=== PATIENT | female | born 1970 | race Caucasian/White ===

== ENCOUNTER 2024-01-24 10:33 | Observation (INO) | payer OTHER, SELFPAY ==
[2024-01-24] VITALS (8 sets, daily range): BP systolic 125–181; BP diastolic 62–109; PULSE 56–78; RESP 16–19; TEMP 36.4–36.6; O2SAT 98–99; BMI 28.9
--- NOTE | ~2024-01-24 | US_ITS ---
EXAMINATION: US PELVIS COMPLETE TRANSVAGINAL PELVIC ULTRASOUND: CLINICAL INFORMATION: Lower abdominal pain COMPARISON: None TECHNIQUE: Transabdominal imaging initially performed. For more definitive evaluation of the endometrium and ovaries, transvaginal technique was employed. FINDINGS: Uterus is anteverted measuring 6.9 x 3.6 x 3.8cm. Endometrium measures 0.6 cm and is heterogeneous in appearance containing cystic spaces. Cervical calcifications and simple appearing nabothian cysts were seen. 1.1 x 0.7 x 0.6 cm avascular cystic structure in the cervix with varying sized internal echogenicities and echoes. Right ovary measures 2.0 x 0.8 x 1.1 cm for a volume of 0.9 mL. The left ovary measures 1.1 x 0.5 x 0.6 0.2 cm for a volume of 0.2 mL. There is no pelvic free fluid. US/US pelvic and transvaginal IMPRESSION: Thickened heterogeneous endometrium in postmenopausal patient. Question 1.1 cm complicated nabothian cyst versus cystic cervical lesion.
--- NOTE | ~2024-01-24 | CT_ITS ---
EXAMINATION: CT ABDOMEN AND PELVIS WITHOUT CONTRAST CLINICAL INFORMATION: Left lower quadrant pain. COMPARISON: Pelvic ultrasound dated 01/24/2024. TECHNIQUE: Multidetector volumetric imaging was performed from the superior aspect of the liver through the pubic symphysis. Sagittal and coronal reformatted images were obtained on the technologist's workstation. This CT examination was performed using dose optimization techniques as appropriate, variously including the following: *Automated exposure control *Adjustment of mA and/or kV according to patient size (this includes techniques or standardized protocols for targeted exams where dose is matched to indication/reason for exam; i.e. extremities or head) *Use of iterative reconstruction technique DLP: 755 mGy-cm FINDINGS: LUNG BASES: The visualized lung bases are unremarkable. LIVER, GALLBLADDER, AND BILIARY TREE: The liver is normal in size, shape, and attenuation. No focal hepatic lesion or biliary ductal dilatation is present. The gallbladder is unremarkable with no evidence of radiopaque gallstones, gallbladder wall thickening, or obvious pericholecystic inflammatory changes. PANCREAS: Unremarkable. SPLEEN: Unremarkable. ADRENAL GLANDS: Unremarkable. KIDNEYS AND URETERS: The kidneys are normal in size, shape, and attenuation. No hydronephrosis, hydroureter, or calculi seen. No perinephric stranding. BLADDER: Unremarkable. GASTROINTESTINAL TRACT: The small bowel and colon are normal in caliber. There is no pericolonic inflammatory stranding. There is what appears to be a suture line within the distal sigmoid colon. Correlate with surgical history. There is mild sigmoid colon diverticulosis. There is no evidence of acute diverticulitis. The appendix is not visualized. There is no free fluid within the abdomen or pelvis. ABDOMINAL WALL: There is a small fat-containing umbilical hernia. LYMPH NODES: There is no abdominal or pelvic lymphadenopathy. VASCULAR: There is no abdominal aortic aneurysm. There is mild calcific atherosclerotic disease. PELVIC VISCERA: The uterus is grossly normal in appearance. There is no adnexal mass lesion. OSSEOUS STRUCTURES: There is a left hip prostheses. No acute osseous abnormality is seen. CT/CT abdomen pelvis wo IV con IMPRESSION: No acute intra-abdominal/intrapelvic abnormality. There is a suture line within the distal sigmoid colon. Correlate with surgical history. There is mild sigmoid colon diverticulosis. There is no evidence of acute diverticulitis. The appendix is not visualized. Correlate with surgical history. Fleischner guidelines were followed.
[2024-01-24 11:11] LABS: MANUAL DIFF FLAG NO
[2024-01-24 11:13] LABS: Basophils Absolute Auto 0.1 X10*3/uL (0.0-0.2); Eosinophils Absolute Auto 0.2 X10*3/uL (0.0-0.4); Eosinophils Percent Auto 2.5 % (0-4); Hemoglobin 16.2 g/dl (12.0-16.0); Imm Gran Abs Auto 0.02 X10*3/uL (0.00-0.03); Imm Gran Pct Auto 0.3 % (0.0-0.4); Lymphocytes Percent Auto 38.9 % (20-40); Mean Corpuscular HGB Conc 33.1 g/dl (31.0-35.0); Mean Corpuscular Hemoglobin 28.3 pg (27.0-33.0); Mean Corpuscular Volume 85.5 fL (80.0-98.0); Mean Platelet Volume 9.7 fL (9.4-12.3); Monocytes Absolute Auto 0.4 X10*3/uL (0.1-1.2); Monocytes Percent Auto 5.4 % (2-11); Neutrophils Percent Auto 51.9 % (45-73); Platelet Count 259 X10*3/uL (160-400); Red Blood Count 5.73 X10*6/uL (4.20-5.50); Red Cell Distribution Width 13.1 % (11.0-16.0); White Blood Count 7.7 X10*3/uL (4.8-10.8)
--- NOTE | 2024-01-24 11:34 | PC.NURSE ---
pt reports vaginal bleeding just started moments ago, seen by NOE Carvajal,
--- NOTE | 2024-01-24 11:35 | ED.ABDPAIN ---
HPI - Abdominal Pain General Chief Complaint: Abdominal Pain Stated Complaint: Stomach Pain Diverticulitis Time Seen by Provider: 01/24/24 14:23 Source: patient Mode of arrival: ambulatory Limitations: no limitations History of Present Illness HPI narrative: patient is a 53-year-old female who presents to the emergency department for evaluation of left lower quadrant abdominal pain. She states while in the emergency department waiting room she used the bathroom, and upon wiping she did notice to have brown/dark red discharge on the toilet tissue which she thought was from the vaginal area, but she can not say with 100% certainty that it was vaginal rather than rectal. She does report a history of complicated diverticulitis with perforation, history of colectomy and colostomy with revision approximately 10 years ago. She reports onset was yesterday and described as severe in nature with a suprapubic cramping sensation. She states that approximately 2 weeks ago she noticed a small amount of brown/dark red ? vaginal bleeding. She reports last menstrual period to be approximately 9 years ago, she went to her OBGYN office who had ordered an ultrasound. She reports she could not understand what the trader fixed income had advised her of in regards to the ultrasound, her primary care doctor told her there was something to do with the endometrium and advised her to follow-up with her trader fixed income but she has not contacted the office back at this time. 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 Reports her last Pap smear to be approximately 4-5 years ago. Related Data Home Medications ?Medication ?Instructions ?Recorded ?Confirmed acetaminophen 300 mg-codeine 30 mg 2 tab PO BID Pain 01/24/24 01/24/24 tablet levothyroxine 100 mcg tablet 100 mcg PO DAILY 01/24/24 01/24/24 losartan 25 mg tablet 25 mg PO BEDTIME 01/24/24 01/24/24 omeprazole 20 mg tablet,delayed 20 mg PO BEDTIME 01/24/24 01/24/24 release paroxetine HCl 40 mg tablet 40 mg PO BEDTIME 01/24/24 01/24/24 rizatriptan 10 mg tablet 10 mg PO DAILY PRN Migraine 01/24/24 01/24/24 Headache simvastatin 20 mg tablet 20 mg PO BEDTIME 01/24/24 01/24/24 topiramate 50 mg tablet 50 mg PO BEDTIME 01/24/24 01/24/24 zolpidem 10 mg tablet 5 - 10 mg PO BEDTIME PRN Insomnia 01/24/24 01/24/24 Allergies Allergy/AdvReac Type Severity Reaction Status Date / Time Iodinated Contrast Media Allergy Hives Verified 01/24/24 10:37 [IV Contrast Dye] Penicillins [PCN] Allergy Hives Verified 01/24/24 10:37 pregabalin [From Lyrica] Allergy Unknown Verified 01/24/24 10:37 Review of Systems Review of Systems Yes all other systems are reviewed and are negative [facility] Past Medical History Attestation statement: The following information was validated with the patient. Source: old records reviewed Social History Social History Smoked in Last 30 Days: Yes Use of substances other than those prescribed or required for medical reasons: No Advance Directives: No Advance Directives Information Provided: No Physical Exam ED Vital Signs: Vital Signs - 24 hr 01/24/24 10:36 01/24/24 11:35 01/24/24 16:26 Temperature 97.6 F Pulse Rate 71 78 Respiratory Rate 19 16 16 Blood Pressure 181/96 H 165/109 H Pulse Oximetry 99 98 Oxygen Delivery Method Room Air 01/24/24 16:30 Temperature Pulse Rate 60 Respiratory Rate 18 Blood Pressure 150/85 H Pulse Oximetry 98 Oxygen Delivery Method Room Air BMI result Body Mass Index 28.9 Appearance: Alert.?Oriented to person, place and time. No acute distress.?Normal affect. Eyes: Pupils equal, round and reactive to light.? ENT: Pharynx normal.?? Neck: Normal inspection.? Neck supple.?? CVS: Heart sounds normal. Normal heart rate and rhythm.? Pulses normal.?? Respiratory: No respiratory distress.? Lung sounds clear to auscultation bilaterally?? Abdomen: Soft left lower quadrant tenderness upon palpation. Normoactive bowel sounds. no CVA tenderness rectal: performed with postdoctoral research associate, ED EDITH Solares, no fissures, no hemorrhoids, no erythema or warmth of the perianal region. No palpable masses on digital rectal examination. Skin: Skin warm and dry.? Normal skin color.? ? Extremities: No lower extremity edema.? Neuro: Moves all extremities spontaneously. Sensation intact bilaterally. Ambulates with normal steady gait. Course Course Course Narrative: This is an RME: Additional HPI, ROS, PE not included below will be deferred to primary provider. 53 year old female presents w/ lower abd pain since yesterday and now here in the emergency started having vaginal bleeding. Has not had a period in like 10 years. Reports she just doseny feel right. Recent US was normal she says Plan- labs, imaging Reevaluation(s) Reevaluation #1: Ultrasound reveals thickened heterogeneous endometrium and question of a 1.1 cm complicated nabothian cyst versus cystic cervical lesion, avascular. These results were discussed with patient. Concern for possible rupture of nabothian cysts which may have resulted in vaginal discharge/ bleeding as described. Had an at length conversation, with any concern for postmenopausal bleeding, she should have malignancy ruled out by her trader fixed income provider. Advised strongly to contact their office today or first thing tomorrow morning to arrange for further follow-up. She continues to have significant left lower quadrant abdominal pain, CT does not reveal any acute intra-abdominal pathology, there is mild diverticulosis but no acute evidence of diverticulitis. Patient was evaluated by hospitalist, Dr. Pulido who pans for inpatient admission for further management. Time: 16:37 Medical Decision Making Medical Decision Making MDM Narrative: Patient is a 53-year-old female past medical history of complicated diverticulitis, HPV presenting to emergency department for evaluation of left lower quadrant abdominal pain and concern for vaginal versus rectal bleeding. Will obtain CBC to evaluate for leukocytosis/ anemia, CMP and lipase to evaluate for abnormal electrolytes /abnormal renal function/ abnormal hepatic/biliary function, pelvic ultrasound as ordered prior to my assumption of care, CT of the abdomen and pelvis and Urinalysis. Differential Diagnosis Differential Diagnoses: The differential diagnosis associated with the presentation includes ( diverticulitis, colitis, gastroenteritis, uterine/cervical cancer, endometrial hyperplasia) Admission/Observation Consideration of admission/observation: Escalation of care including admission/observation considered ( see course narrative) Lab Data [facility] Lab Attestation statement: I reviewed the patient's lab results. CBC is without leukocytosis anemia or thrombocytopenia. CMP overall unremarkable. Lipase within normal range. urinalysis negative. Occult stool negative. 01/24/24 11:07 01/24/24 11:07 Labs: Lab Results 01/24/24 01/24/24 01/24/24 Range/Units 11:07 15:16 16:19 WBC 7.7 (4.8-10.8) X10*3/uL RBC 5.73 H (4.20-5.50) X10*6/uL Hgb 16.2 H (12.0-16.0) g/dl Hct 49.0 H (37.0-47.0) % MCV 85.5 (80.0-98.0) fL MCH 28.3 (27.0-33.0) pg MCHC 33.1 (31.0-35.0) g/dl RDW 13.1 (11.0-16.0) % Plt Count 259 (160-400) X10*3/uL MPV 9.7 (9.4-12.3) fL Immature Gran % (Auto) 0.3 (0.0-0.4) % Neut % (Auto) 51.9 (45-73) % Lymph % (Auto) 38.9 (20-40) % [place] % (Auto) 5.4 (2-11) % Eos % (Auto) 2.5 (0-4) % Baso % (Auto) 1.0 (0-2) % Lymph # (Auto) 3.0 (1.2-4.9) X10*3/uL [place] # (Auto) 0.4 (0.1-1.2) X10*3/uL Eos # (Auto) 0.2 (0.0-0.4) X10*3/uL Baso # (Auto) 0.1 (0.0-0.2) X10*3/uL Abs Immat Gran (auto) 0.02 (0.00-0.03) X10*3/uL Absolute Neuts (auto) 4.0 (2.0-8.3) x10*3/uL Absolute Nucleated RBC 0.000 (0.0-0.012) X10*3/uL Nucleated RBC % (auto) 0.0 (0.0-0.2) /100WBC Sodium 141 (135-145) mmol/L Potassium 3.9 (3.3-5.1) mmol/L Chloride 110 H (96-108) mmol/L Carbon Dioxide 20 L (22-29) mmol/L Anion Gap 15 (12-20) BUN 8 L (9-16) mg/dL Creatinine 0.82 (0.5-1.4) mg/dL Estim Creat Clear Calc 89.1 Estimated GFR > 60 Random Glucose 90 (60-115) mg/dL Calcium 10.2 (8.4-10.2) mg/dL Total Bilirubin 0.4 (0.0-1.0) mg/dL Direct Bilirubin 0.1 (0.0-0.5) mg/dL AST 22 (5-31) U/L ALT 41 H (0-31) U/L Alkaline Phosphatase 107 (39-117) U/L Total Protein 8.0 (6.5-8.0) g/dL Albumin 4.9 (3.5-5.0) g/dL Lipase 38 (8-78) U/L Urine Color Yellow Urine Appearance Clear Urine pH 7.0 (5.0-9.0) Ur Specific [place] 1.015 (1.005-1.025) Urine Protein Negative (Neg-Trace) mg/dL Urine Glucose (UA) Negative (Negative) mg/dL Urine Ketones Negative (Negative) mg/dL Urine Blood Negative (Negative) Urine Nitrite Negative (Negative) Ur Leukocyte Esterase Negative (Negative) Stool Occult Blood NEGATIVE (NEGATIVE) Radiology Impression Discussion of test interpretation with radiology: I have reviewed the radiologist's reading. Radiologist Impression: US/US pelvic and transvaginal IMPRESSION: Thickened heterogeneous endometrium in postmenopausal patient. Question 1.1 cm complicated nabothian cyst versus cystic cervical lesion. CT/CT abdomen pelvis wo IV con IMPRESSION: No acute intra-abdominal/intrapelvic abnormality. There is a suture line within the distal sigmoid colon. Correlate with surgical history. There is mild sigmoid colon diverticulosis. There is no evidence of acute diverticulitis. The appendix is not visualized. Correlate with surgical history. Fleischner guidelines were followed. Medications Administered Generic Name Dose Route Start Last Admin Trade Name Freq PRN Reason Stop Dose Admin Enoxaparin Sodium 40 mg 01/24/24 18:00 01/24/24 17:58 Enoxaparin Sodium 40 Mg/0.4 Ml Syringe SUBCUT 40 mg Q24H ROSI Administration Lactated Ringer's 1,000 mls @ 100 mls/hr 01/24/24 16:45 01/24/24 18:06 Lr IVCONT 100 mls/hr .Q10H ROSI Administration Metronidazole 500 mg in 100 mls @ 100 mls/hr 01/24/24 17:00 01/24/24 17:52 Flagyl IV 100 mls/hr Q8H ROSI Administration Discontinued Medications Generic Name Dose Route Start Last Admin Trade Name Freq PRN Reason Stop Dose Admin Morphine Sulfate 4 mg 01/24/24 15:17 01/24/24 16:26 Morphine Sulfate 4 Mg/Ml Cartridge IVPUSH 01/24/24 15:18 4 mg ONCE ONE Administration Protocol Ondansetron HCl 4 mg 01/24/24 15:17 01/24/24 16:26 Ondansetron Hcl 4 Mg/2 Ml Vial IVPUSH 01/24/24 15:18 4 mg ONCE ONE Administration Critical Care Time Critical Care Time Critical Care Time: Yes Total Critical Care Time: 40 Attestation: I personally attest to this critical care time spent taking care of the patient exclusive of all other billable procedures was approximately 40 minutes including initial evaluation of patient, ordering tests,CT interpretation, Pain management, medical consultation, documentation, re-evaluation. Discharge Plan Discharge Clinical Impression: Left lower quadrant abdominal pain, Hypertension Patient Disposition: Admitted As Inpatient
[2024-01-24 11:37] LABS: Alanine Aminotransferase 41 U/L (0-31); Albumin Level 4.9 g/dL (3.5-5.0); Alkaline Phosphatase 107 U/L (39-117); Anion Gap 15 (12-20); Aspartate Amino Transferase 22 U/L (5-31); Bilirubin Direct 0.1 mg/dL (0.0-0.5); Bilirubin Total 0.4 mg/dL (0.0-1.0); Blood Urea Nitrogen 8 mg/dL (9-16); Calcium 10.2 mg/dL (8.4-10.2); Carbon Dioxide 20 mmol/L (22-29); Chloride 110 mmol/L (96-108); Creatinine Clr Calc Pharmacy 89.1; Estimated Glomerular Filt Rate > 60; Glucose Random 90 mg/dL (60-115); Lipase 38 U/L (8-78); Potassium 3.9 mmol/L (3.3-5.1); Sodium 141 mmol/L (135-145)
[2024-01-24 15:24] LABS: OBS Int Ctl Valid YES; OBS1 NEGATIVE (NEGATIVE)
[2024-01-24] MEDS: ondansetron HCL 4 MG/2 ML VIAL IVPUSH (16:26)
[2024-01-24] MEDS: Morphine Sulfate 4 MG/ML CARTRIDGE IVPUSH ×3 (16:26→22:52)
[2024-01-24 16:31] LABS: Appearance Urine Clear; Color Urine Yellow; Glucose Urine UA Negative (Negative); Leukocyte Esterase Urine Negative (Negative); Nitrite Urine Negative (Negative); Specific Gravity - Urine 1.015 (1.005-1.025); Urine Blood Negative (Negative); Urine Ketones Negative (Negative); Urine Protein Negative (Neg-Trace)
--- NOTE | 2024-01-24 16:41 | PM.IMHP ---
History of Present Illness Date of Service: 01/24/24 Chief Complaint: Abd pain 53-year-old female who presents to the emergency department for evaluation of left lower quadrant abdominal pain. She states while in the emergency department waiting room she used the bathroom, and upon wiping she did notice to have brown/dark red discharge on the toilet tissue which she thought was from the vaginal area, but she can not say with 100% certainty that it was vaginal rather than rectal. She does report a history of complicated diverticulitis with perforation, history of colectomy and colostomy with revision approximately 10 years ago. She reports onset was yesterday and described as severe in nature with a suprapubic cramping sensation. She states that approximately 2 weeks ago she noticed a small amount of brown/dark red ? vaginal bleeding. She reports last menstrual period to be approximately 9 years ago, she went to her OBGYN office who had ordered an ultrasound. She reports she could not understand what the retail maintenance technician had advised her of in regards to the ultrasound, her primary care doctor told her there was something to do with the endometrium and advised her to follow-up with her retail maintenance technician but she has not contacted the office back at this time. 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 Reports her last Pap smear to be approximately 4-5 years ago. Review of Systems Review of Systems: Denies chest pain Denies shortness of breath Admits to nausea no vomiting no diarrhea Denies fever chills PMFSH Social History Smoked in Last 30 Days: Yes Use of substances other than those prescribed or required for medical reasons: No Advance Directives: No Advance Directives Information Provided: No Meds Allergies Allergy/AdvReac Type Severity Reaction Status Date / Time Iodinated Contrast Media Allergy Hives Verified 01/24/24 10:37 [IV Contrast Dye] Penicillins [PCN] Allergy Hives Verified 01/24/24 10:37 pregabalin [From Lyrica] Allergy Unknown Verified 01/24/24 10:37 Active Medications: Current Medications Enoxaparin Sodium (Enoxaparin Sodium 40 Mg/0.4 Ml Syringe) 40 mg SUBCUT Q24H ROSI Lactated Ringer's (Lr) 1,000 mls @ 100 mls/hr IVCONT .Q10H ROSI Levofloxacin (Levaquin) 500 mg in 100 mls @ 100 mls/hr IV Q24H ROSI Metronidazole (Flagyl) 500 mg in 100 mls @ 100 mls/hr IV Q8H ROSI Morphine Sulfate (Morphine Sulfate 4 Mg/Ml Cartridge) 4 mg IVPUSH Q4H PRN; Protocol PRN Reason: Pain, Severe (Pain Scale 7-10) Sodium Chloride (0.9 % Sodium Chloride Flush 3 Ml Syringe) 3 ml IVFLUSH QSHIFT ROSI Physical Exam Vital Signs and Narrative: Vital Signs: Last Vital Signs Temp 97.6 F 01/24/24 10:36 Pulse 60 01/24/24 16:30 Resp 18 01/24/24 16:30 BP 150/85 H 01/24/24 16:30 Pulse Ox 98 01/24/24 16:30 O2 Del Method Room Air 01/24/24 16:30 BMI result Body Mass Index 28.9 Const: Other: Uncomfortable appearing lying quietly in the stretcher Resp: Other: Clear to auscultation bilaterally no rales rhonchi or wheezes Cardio: Other: No S4; positive S1-S2; no S3 murmurs rubs or gallops GI: Other: Soft tender left lower quadrant with voluntary guarding. Bowel sounds quiet Neuro: Other: Cranial nerves 2-12 grossly intact as tested. Motor is 5/5 all extremities. Sensation is intact. Cognition appropriate. Gait not tested Extrem: Other: No edema bilaterally Results Labs 01/24/24 11:07 01/24/24 11:07 Labs: Laboratory Results - last 24 hr 01/24/24 01/24/24 11:07 15:16 MCV 85.5 MCH 28.3 MCHC 33.1 RDW 13.1 Plt Count 259 MPV 9.7 Immature Gran % (Auto) 0.3 Neut % (Auto) 51.9 Lymph % (Auto) 38.9 [place] % (Auto) 5.4 Eos % (Auto) 2.5 Baso % (Auto) 1.0 Lymph # (Auto) 3.0 [place] # (Auto) 0.4 Eos # (Auto) 0.2 Baso # (Auto) 0.1 Abs Immat Gran (auto) 0.02 Absolute Neuts (auto) 4.0 Absolute Nucleated RBC 0.000 Nucleated RBC % (auto) 0.0 Anion Gap 15 Estim Creat Clear Calc 89.1 Estimated GFR > 60 Random Glucose 90 Calcium 10.2 Total Bilirubin 0.4 Direct Bilirubin 0.1 AST 22 ALT 41 H Alkaline Phosphatase 107 Total Protein 8.0 Albumin 4.9 Lipase 38 Stool Occult Blood NEGATIVE Imaging Radiologist's Impressions: Impressions Pelvic/Transvag US 01/24/24 12:44 IMPRESSION: Thickened heterogeneous endometrium in postmenopausal patient. Question 1.1 cm complicated nabothian cyst versus cystic cervical lesion. Abdomen/Pelvis CT 01/24/24 15:43 IMPRESSION: No acute intra-abdominal/intrapelvic abnormality. There is a suture line within the distal sigmoid colon. Correlate with surgical history. There is mild sigmoid colon diverticulosis. There is no evidence of acute diverticulitis. The appendix is not visualized. Correlate with surgical history. Fleischner guidelines were followed. Assessment and Plan (1) Left lower quadrant abdominal pain: Status: Acute (2) Hypertension: Qualifiers: Hypertension type: primary hypertension Qualified Code(s): I10 - Essential (primary) hypertension Status: Acute (3) Hypothyroidism: Qualifiers: Hypothyroidism type: unspecified Qualified Code(s): E03.9 - Hypothyroidism, unspecified Status: Acute Plan 53-year-old female with onset of 10/10 left lower quadrant pain worsening over the last 24 hours. Has history of complicated diverticulitis with perforation history of colectomy with colostomy which was revised approximately 10 years ago. Complaining of persistent nausea despite Zofran 1. Left lower quadrant pain Given patient's exam and history with nausea will admit observation for Zofran and pain control despite negative CT scan. -Levaquin/Flagyl (1) -morphine for severe pain; oxycodone from mild pain -volume repletion -re-evaluate in a.m. 2. Hypertension -acceptable control -continue losartan 3. Hypothyroidism -continue outpatient supplementation Full code Lovenox Patient requires 1 night of hospitalization for IV Zofran and pain medicine with empiric antibiotics for suspected CT scan negative diverticulitis. Given examined history she is a high risk for outpatient therapies. This level of care can not be replicated a [facility] Quality Stroke Does the patient have a stroke diagnosis?: No VTE Prior VTE?: No VTE Risk Level:: Medical - moderate - high VTE Device Contraindication: Treatment Not Indicated VTE Drug Contraindication: N/A - Med Ordered
--- NOTE | 2024-01-24 16:59 | PHA.MEDREC ---
Pharmacy Consult ? Medication Reconciliation Pharmacy has completed the medication reconciliation. Patient confirmed all medication. Patient takes Tylenol w/ codeine scheduled BID for her hip surgery. Patient takes all medication at night, except levothyroxine. Maria C RogersD
[2024-01-24] MEDS: metroNIDAZOLE/NS 500 MG/100 ML PIGGYBACK 100 MG IV (17:52)
[2024-01-24] MEDS: Enoxaparin Sodium 40 MG/0.4 ML SYRINGE SUBCUT (17:58)
[2024-01-24] MEDS: Lactated Ringers 1,000 ML 100 ML IVCONT (18:06)
[2024-01-24 18:23] LABS: MANUAL DIFF FLAG NO
[2024-01-24] MEDS: levoFLOXacin/D5W 500 MG/100 ML PIGGYBACK 100 MG IV (18:53)
[2024-01-24 18:59] LABS: Basophils Absolute Auto 0.1 X10*3/uL (0.0-0.2); Basophils Percent Auto 1.1 % (0-2); Eosinophils Absolute Auto 0.2 X10*3/uL (0.0-0.4); Eosinophils Percent Auto 2.4 % (0-4); Hematocrit 43.7 % (37.0-47.0); Hemoglobin 14.4 g/dl (12.0-16.0); Imm Gran Abs Auto 0.01 X10*3/uL (0.00-0.03); Imm Gran Pct Auto 0.1 % (0.0-0.4); Lymphocytes Absolute Auto 2.8 X10*3/uL (1.2-4.9); Lymphocytes Percent Auto 37.1 % (20-40); Mean Corpuscular Hemoglobin 28.3 pg (27.0-33.0); Mean Platelet Volume 9.8 fL (9.4-12.3); Monocytes Absolute Auto 0.5 X10*3/uL (0.1-1.2); Monocytes Percent Auto 6.8 % (2-11); Neutrophils Absolute Auto 3.9 x10*3/uL (2.0-8.3); Neutrophils Percent Auto 52.5 % (45-73); Platelet Count 257 X10*3/uL (160-400); Red Blood Count 5.08 X10*6/uL (4.20-5.50); Red Cell Distribution Width 13.1 % (11.0-16.0); White Blood Count 7.5 X10*3/uL (4.8-10.8)
[2024-01-24] MEDS: Losartan Potassium 25 MG TABLET PO (21:15)
[2024-01-25] MEDS: metroNIDAZOLE/NS 500 MG/100 ML PIGGYBACK 100 MG IV ×3 (01:55→16:08)
[2024-01-25 03:06] VITALS: BP 165/81; PULSE 53; RESP 16; TEMP 36.1; O2SAT 99
[2024-01-25 03:09] VITALS: BMI 29.3
[2024-01-25 03:17] LABS: Glucose, Whole Blood 116 mg/dL (60-115)
[2024-01-25] MEDS: Lactated Ringers 1,000 ML 100 ML IVCONT ×2 (03:26→13:21)
[2024-01-25] MEDS: Morphine Sulfate 4 MG/ML CARTRIDGE IVPUSH ×3 (03:26→18:23)
[2024-01-25 07:42] VITALS: BP 138/79; PULSE 55; RESP 16; TEMP 36.1; O2SAT 95
[2024-01-25] MEDS: Acetaminophen/Codeine 300-30mg Tablet 1 TAB PO (09:04)
--- NOTE | 2024-01-25 10:23 | MHC.CM.PN ---
PATIENT IS FULLY INDEPENDENT WITH ALL ADLS. 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 NICHOLSON EXPLAINED, SIGNED, AND COPY LEFT BEDSIDE. PATIENT CURRENTLY EXPERIENCING NAUSEA AND ABDOMINAL PAIN CM NAME WRITTEN ON BOARD IN THE EVENT SHE HAS ANY FURTHER QUESTIONS. CM CAN RETURN TO DISCUSS HCP NICHOLSON 01/24 IN CHART
[2024-01-25] MEDS: ondansetron HCL 4 MG/2 ML VIAL IVPUSH (10:36)
[2024-01-25 12:00] VITALS: BP 156/84; PULSE 52; RESP 16; TEMP 36.2; O2SAT 96
--- NOTE | 2024-01-25 13:38 | P.PNIM_ITS ---
Subjective Subjective Date of Service: 01/25/24 Interval History: Still unable to take p.o. without increasing abdominal pain. Review of Systems Denies chest pain Denies shortness of breath Admits to nausea no vomiting no diarrhea Denies fever chills Physical Exam 2 Vital Signs: Vital Signs: Last Vital Signs Temp 97.2 F 01/25/24 12:00 Pulse 52 01/25/24 12:00 Resp 16 01/25/24 12:00 BP 156/84 H 01/25/24 12:00 Pulse Ox 96 01/25/24 12:00 O2 Del Method Room Air 01/25/24 12:00 BMI result Body Mass Index 29.3 Const: Other: Uncomfortable appearing lying quietly in the stretcher Resp: Other: Clear to auscultation bilaterally no rales rhonchi or wheezes Cardio: Other: No S4; positive S1-S2; no S3 murmurs rubs or gallops GI: Other: Soft tender left lower quadrant with voluntary guarding. Bowel sounds quiet Neuro: Other: Cranial nerves 2-12 grossly intact as tested. Motor is 5/5 all extremities. Sensation is intact. Cognition appropriate. Gait not tested Extrem: Other: No edema bilaterally Objective Data Active Medications Atorvastatin Calcium (Atorvastatin Calcium 10 Mg Tablet) 10 mg PO BEDTIME [facility] Enoxaparin Sodium (Enoxaparin Sodium 40 Mg/0.4 Ml Syringe) 40 mg SUBCUT Q24H [facility] Last Admin: 01/24/24 17:58 Dose: 40 mg Documented By: MINE Lactated Ringer's (Lr) 1,000 mls @ 100 mls/hr IVCONT .Q10H [facility] Last Admin: 01/25/24 13:21 Dose: 100 mls/hr Documented By: ROSETTA Levofloxacin (Levaquin) 500 mg in 100 mls @ 100 mls/hr IV Q24H [facility] Last Infusion: 01/24/24 21:08 Dose: Infused Documented By: BRIDGER Metronidazole (Flagyl) 500 mg in 100 mls @ 100 mls/hr IV Q8H [facility] Last Infusion: 01/25/24 09:22 Dose: Infused Documented By: ROSETTA Levothyroxine Sodium (Levothyroxine Sodium 100 Mcg Tablet) 100 mcg PO DAILY@0600 [facility] Last Admin: 01/25/24 10:47 Dose: Not Given Documented By: ROSETTA Non-Admin Reason: Nausea Losartan Potassium (Losartan Potassium 25 Mg Tablet) 25 mg PO BEDTIME [facility]I; Protocol Last Admin: 01/24/24 21:15 Dose: 25 mg Documented By: BRIDGER Morphine Sulfate (Morphine Sulfate 4 Mg/Ml Cartridge) 4 mg IVPUSH Q3H PRN; Protocol PRN Reason: Pain, Severe (Pain Scale 7-10) Last Admin: 01/25/24 10:43 Dose: 4 mg Documented By: ROSETTA Omeprazole (Omeprazole 20 Mg Capsule.Dr) 20 mg PO BEDTIME [facility] Ondansetron HCl (Ondansetron Hcl 4 Mg/2 Ml Vial) 4 mg IVPUSH Q6H PRN PRN Reason: Nausea and Vomiting Last Admin: 01/25/24 10:36 Dose: 4 mg Documented By: ROSETTA Oxycodone HCl (Oxycodone Hcl Immed Release 5 Mg Tablet) 5 mg PO Q4H PRN PRN Reason: Pain, Moderate(Pain Scale 4-6) Paroxetine HCl (Paroxetine Hcl 40 Mg Tablet) 40 mg PO BEDTIME [facility] Sodium Chloride (0.9 % Sodium Chloride Flush 3 Ml Syringe) 3 ml IVFLUSH QSHIFT [facility] Last Admin: 01/25/24 07:12 Dose: Not Given Documented By: ROSETTA Non-Admin Reason: IV Running Labs 01/24/24 18:14 01/24/24 11:07 Labs: Laboratory Results - last 24 hr 01/24/24 01/24/24 01/24/24 15:16 16:19 18:14 MCV 86.0 MCH 28.3 MCHC 33.0 RDW 13.1 Plt Count 257 MPV 9.8 Immature Gran % (Auto) 0.1 Neut % (Auto) 52.5 Lymph % (Auto) 37.1 [place] % (Auto) 6.8 Eos % (Auto) 2.4 Baso % (Auto) 1.1 Lymph # (Auto) 2.8 [place] # (Auto) 0.5 Eos # (Auto) 0.2 Baso # (Auto) 0.1 Abs Immat Gran (auto) 0.01 Absolute Neuts (auto) 3.9 Absolute Nucleated RBC 0.000 Nucleated RBC % (auto) 0.0 POC Glucose Urine Color Yellow Urine Appearance Clear Urine pH 7.0 Ur Specific [place] 1.015 Urine Protein Negative Urine Glucose (UA) Negative Urine Ketones Negative Urine Blood Negative Urine Nitrite Negative Ur Leukocyte Esterase Negative Stool Occult Blood NEGATIVE 01/25/24 03:12 MCV MCH MCHC RDW Plt Count MPV Immature Gran % (Auto) Neut % (Auto) Lymph % (Auto) [place] % (Auto) Eos % (Auto) Baso % (Auto) Lymph # (Auto) [place] # (Auto) Eos # (Auto) Baso # (Auto) Abs Immat Gran (auto) Absolute Neuts (auto) Absolute Nucleated RBC Nucleated RBC % (auto) POC Glucose 116 H Urine Color Urine Appearance Urine pH Ur Specific [place] Urine Protein Urine Glucose (UA) Urine Ketones Urine Blood Urine Nitrite Ur Leukocyte Esterase Stool Occult Blood Assessment and Plan (1) Left lower quadrant abdominal pain: Status: Acute (2) Hypertension: Status: Acute (3) Hypothyroidism: Status: Acute Plan 53-year-old female with onset of 10/10 left lower quadrant pain worsening over the last 24 hours. Has history of complicated diverticulitis with perforation history of colectomy with colostomy which was revised approximately 10 years ago. Complaining of persistent nausea despite Zofran 1. Left lower quadrant pain Given patient's exam and history with nausea will admit observation for Zofran and pain control despite negative CT scan. -Levaquin/Flagyl (2) -morphine for severe pain; oxycodone from mild pain -volume repletion -re-evaluate in a.m. 2. Hypertension -acceptable control -continue losartan 3. Hypothyroidism -continue outpatient supplementation Full code Lovenox Patient requires ongoing hospitalization secondary to increased abdominal pain and inability to take p.o. without discomfort Quality Stroke Does the patient have a stroke diagnosis?: No VTE Prior VTE?: No VTE Risk Level:: Medical - moderate - high VTE Device Contraindication: Treatment Not Indicated VTE Drug Contraindication: N/A - Med Ordered
[2024-01-25 14:48] VITALS: BP 129/68; PULSE 61; RESP 18; TEMP 36.6; O2SAT 94
[2024-01-25] MEDS: oxyCODONE HCl Immed Release 5 MG TABLET PO ×2 (16:13→23:21)
[2024-01-25] MEDS: Enoxaparin Sodium 40 MG/0.4 ML SYRINGE SUBCUT (17:09)
[2024-01-25] MEDS: levoFLOXacin/D5W 500 MG/100 ML PIGGYBACK 100 MG IV (17:23)
[2024-01-25 19:03] VITALS: BP 151/98; PULSE 59; RESP 18; TEMP 36.3; O2SAT 97
[2024-01-25 20:01] VITALS: BP 151/98
[2024-01-25] MEDS: Atorvastatin Calcium 10 MG TABLET PO (20:01)
[2024-01-25] MEDS: PARoxetine HCL 40 MG TABLET PO (20:01)
[2024-01-25] MEDS: Omeprazole 20 MG CAPSULE.DR PO (20:01)
[2024-01-25] MEDS: Losartan Potassium 25 MG TABLET PO (20:01)
[2024-01-25] MEDS: 0.9 % Sodium Chloride Flush 3 ML SYRINGE IVFLUSH (20:02)
[2024-01-26] MEDS: metroNIDAZOLE/NS 500 MG/100 ML PIGGYBACK 100 MG IV ×2 (00:02→08:19)
[2024-01-26 04:00] VITALS: BP 140/72; PULSE 55; RESP 16; TEMP 36; O2SAT 94
[2024-01-26] MEDS: Levothyroxine Sodium 100 MCG TABLET PO (06:16)
[2024-01-26] MEDS: oxyCODONE HCl Immed Release 5 MG TABLET PO (06:18)
[2024-01-26 07:00] VITALS: BP 159/78; PULSE 51; RESP 16; TEMP 36.3; O2SAT 96
[2024-01-26 08:20] VITALS: RESP 17
[2024-01-26] MEDS: Morphine Sulfate 4 MG/ML CARTRIDGE IVPUSH (08:20)
[2024-01-26] MEDS: ondansetron HCL 4 MG/2 ML VIAL IVPUSH (08:20)
[2024-01-26] MEDS: 0.9 % Sodium Chloride Flush 3 ML SYRINGE IVFLUSH (08:20)
[2024-01-26] MEDS: Magnesium Hydrox/Alum Hydrox 30 ML ORAL.SUSP PO (10:36)
[2024-01-26] MEDS: Pantoprazole Sodium 40 MG/10 ML VIAL IVPUSH (10:36)
[2024-01-26] MEDS: Lidocaine HCl Viscous 2 % 15 ML SOLUTION MUCOUS MEM (10:37)
--- NOTE | 2024-01-26 12:14 | PM.DS ---
DS: Providers Provider Date of Service: 01/26/24 Date of admission: 01/24/24 16:41 Date of discharge: 01/26/24 Primary care physician: Suman Tijerina MD DS: Diagnosis Discharge Diagnosis (1) Left lower quadrant abdominal pain: Status: Acute (2) Hypertension: Status: Acute (3) Hypothyroidism: Status: Acute DS: Summary Hospital Course Hospital Course: 56-year-old female with a PMH significant for?HTN, HLD, seizure disorder, CVA x2, remote hx of opioid use disorder on methadone, and anxiety who presents to the ED with?worsening abdominal pain and productive cough. Pt initially presented to the ED on 01/16/2024 for evaluation of abdominal pain with intractable nausea and vomiting. Workup at the time was significant for CT of abd/pelvis with question of acute pancreatitis. Lipase was WNL at 9 at that time. Abdominal exam was benign and patient was discharged on Zofran once nausea subsided. Patient reports that since discharge from ED has continued to experience intermittent epigastric and left-sided abdominal pain, worse this morning which was what prompted her visit to the ED. States has been eating and drinking ?nothing? for past 7 days. Nausea and vomiting appear much better than before, but continues to report an unspecified ?little? amount of nausea and vomiting. States has been coughing up significant amounts of phlegm for the past several days and been experiencing subjective fever and chills. Denies shortness of breath or LAW. Denies chest pain/pressure, palpitations. In the ED pt was febrile up to 102.8, tachycardic up to 96, with soft BP as low as 106/51, satting at 95% on RA. Labs were significant for leukocytosis of 16.1, lactic acid 2.2 with repeat 1.3. Stable H& H. No significant electrolyte abnormalities. Tested negative for flu, RSV COVID. UA negative for UTI. CXR showed suspected right middle and left lower lobe pneumonia. CT?of abdomen and pelvis found interval development from 01/15 of right middle lobe pneumonia and possible right lower lobe pneumonia. Also showed small bowel mesenteric root/peripancreatic haziness, likely chronic dating back to 07/03/2022. Redemonstrated left ovarian cyst with thin internal septations, outpatient surgical consultation and pelvic MRI recommended. EKG demonstrated normal sinus rhythm with no significant ST elevations or depressions. Pt was treated with IVF, ceftriaxone, acetaminophen, and ondansetron. Pt will be admitted to the hospital for treatment further evaluation of multifocal pneumonia with sepsis. Hospital Course Patient admitted to regular floor on empiric Levaquin and Flagyl given her extensive history of diverticular disease and clinical presentation despite a negative CT scan. Over the course of the next 24 hours she had essentially no improvement with antibiotics. When further queried she states she has been having postprandial abdominal pain but this episode felt lower. Attempt to advance her diet result in a more epigastric pain. She was given Maalox and viscous lidocaine with complete resolution of her pain. She tolerated diet without issue. At this point time she will be discharged on omeprazole in the a.m. Pepcid in the p.m. but no antibiotics given a negative CT scan. She will follow up on these with her PCP and further workup dictated by him Time Attestation Discharge Coordination Time (in mins): 35 Quality: Safe Use of Opioids Does Pt have an Active Cancer Diagnosis on the Problem List?: No Quality: Stroke Does the patient have a stroke diagnosis?: No Physical Exam Vital Signs: Vital Signs: Last Vital Signs Temp 97.3 F 01/26/24 07:00 Pulse 51 01/26/24 07:00 Resp 17 01/26/24 08:20 BP 159/78 H 01/26/24 07:00 Pulse Ox 96 01/26/24 07:00 O2 Del Method Room Air 01/26/24 07:00 BMI result Body Mass Index 29.3 Const: Other: Uncomfortable appearing lying quietly in the stretcher Resp: Other: Clear to auscultation bilaterally no rales rhonchi or wheezes Cardio: Other: No S4; positive S1-S2; no S3 murmurs rubs or gallops GI: Other: Soft tender left lower quadrant with voluntary guarding. Bowel sounds quiet Neuro: Other: Cranial nerves 2-12 grossly intact as tested. Motor is 5/5 all extremities. Sensation is intact. Cognition appropriate. Gait not tested Extrem: Other: No edema bilaterally Discharge Plan Discharge Anticipated Discharge Date/Time: 01/26/24 12:05 Patient Disposition: Home, Self-Care Discharge Diagnosis: Acute gastritis Referrals: Suman Tijerina MD [Primary Care Provider] - 1 Week Discharge Medications: New lidocaine HCl 2 % Solution 15 ml mucous membrane Q4H PRN (Reason: Heartburn) Qty: 120 1RF oxycodone 5 mg Tablet 5 mg PO Q4H PRN (Reason: Pain, Moderate(Pain Scale 4-6)) Qty: 20 0RF Rx Instructions: Partial Fill upon patient request. MAG-AL 200-200 mg/5 mL Suspension 30 ml PO Q4H PRN (Reason: Heartburn) Qty: 260 0RF omeprazole 40 mg capsule,delayed release(DR/EC) 40 mg PO DAILY Qty: 30 0RF famotidine [Pepcid] 40 mg tablet 40 mg PO BEDTIME Qty: 30 0RF Continued rizatriptan 10 mg tablet 10 mg PO DAILY PRN (Reason: Migraine Headache) acetaminophen-codeine 300-30 mg tablet 2 tab PO BID levothyroxine 100 mcg tablet 100 mcg PO DAILY simvastatin 20 mg tablet 20 mg PO BEDTIME losartan 25 mg tablet 25 mg PO BEDTIME zolpidem 10 mg tablet 5 - 10 mg PO BEDTIME PRN (Reason: Insomnia) Rx Instructions: TAKE 5 MG, MAY REPEAT IF NEEDED paroxetine HCl 40 mg tablet 40 mg PO BEDTIME topiramate 50 mg tablet 50 mg PO BEDTIME omeprazole 20 mg Tablet,Delayed Release (Dr/Ec) 20 mg PO BEDTIME Discharge Orders: Discharge Order (Routine); Ordered 01/26/24 Ordered By: Ta Pulido Diet: Advance to usual diet Activity on Discharge: As tolerated Stand Alone Forms: Patient Portal Discharge page Print Language: Ukrainian Care Plan Goals: Resume all medicines as taken prior to the hospital Health Concerns: Take omeprazole 40 mg each morning and Pepcid 40 mg each evening. Utilize Maalox 30 cc and viscous lidocaine 15 cc for extreme abdominal discomfort. Eat a bland diet until seen by primary Plan of Treatment: Follow-up with Dr. Tijerina next available appointment Assessment: See discharge summary
--- NOTE | 2024-01-26 12:43 | MHC.CM.PN ---
PATIENT IS DC HOME - SELF CARE SHE HAS TRANSPORT ARRANGED.RN AWARE OF PLAN.
== END 2024-01-26 13:42 | disposition home or self-care (01) ==
LOC: HO.ED 14:23 → HO.EDOVER 16:42 → HO.S3 01-25 00:18
PROVIDERS: Nurse Practitioner Family; Admitting Provider Hospitalist; Emergency Provider Emergency Medicine; PCP Internal Medicine; Visit Provider Hospitalist
DX: K29.70 Gastritis, unspecified, without bleeding (principal); R11.2 Nausea with vomiting, unspecified; R10.32 Left lower quadrant pain; I10 Essential (primary) hypertension; E03.9 Hypothyroidism, unspecified; G40.909 Epilepsy, unspecified, not intractable, without status epilepticus; F11.90 Opioid use, unspecified, uncomplicated; R05.9 Cough, unspecified; Z86.73 Personal history of transient ischemic attack (TIA), and cerebral infarction without residual deficits; Z79.899 Other long term (current) drug therapy
CPT/HCPCS: 36415; 74176; 76830; 76856; 80048; 80076; 81003; 82272; 82947; 83690; 85025; 96361; 96365; 96366; 96367; 96372; 96375; 96376; 99221; 99285; C9113; J1650; J1836; J1956; J2270; J2405; J7120

== ENCOUNTER → 2024-01-24 16:41 | Outpatient (BNV) | payer OTHER, SELFPAY | PROVIDERS: Admitting Provider Hospitalist; Emergency Provider Emergency Medicine; PCP Internal Medicine; Visit Provider Hospitalist | DX: R10.32 Left lower quadrant pain (principal); I10 Essential (primary) hypertension; E03.9 Hypothyroidism, unspecified | CPT/HCPCS: 99223; 99233; 99239 ==

== ENCOUNTER 2024-03-03 09:11 | Emergency (ER) | payer OTHER, SELFPAY ==
[2024-03-03] VITALS (8 sets, daily range): BP systolic 119–143; BP diastolic 74–98; PULSE 68–104; RESP 14–20; TEMP 36.6–36.8; O2SAT 96–99; BMI 28.3
--- NOTE | ~2024-03-03 | XR_ITS ---
EXAMINATION: XR CHEST CLINICAL INFORMATION: Shortness of breath and chest pain COMPARISON: None available. TECHNIQUE: Frontal view of the chest was obtained. FINDINGS: No significant abnormality is noted involving the heart, lungs, mediastinum, bony thorax or soft tissues. XR/XR chest 1V IMPRESSION: Unremarkable examination.
--- NOTE | 2024-03-03 09:17 | ED.GENADULT ---
HPI - General Adult General Chief complaint: Dizziness Stated complaint: LLQ PAIN,DIZZY PER EMS Time Seen by Provider: 03/03/24 09:12 Source: patient, RN notes reviewed and old records reviewed Mode of arrival: ambulatory History of Present Illness ED Provider: Juanita Richter PA-C HPI narrative: 53-year-old female with a past medical history of diverticulitis complicated by colectomy with colostomy revision, prediabetic, HTN, migraines, presenting to the ED complaining of presyncopal episode with lightheadedness, chest pain, SOB, arm heaviness and tingling around 06:45AM. Admits symptoms subsided and then recurred when patient got to work thus presented to the ED. reports acute on chronic headache, typical of migraines. Denies vision change/loss. Also reports chronic left lower quadrant abdominal pain since recent diverticulitis/cervical biopsy. Reports chronic nausea. Denies vomiting, diarrhea, constipation, dysuria/hematuria, room spinning dizziness Related Data Home Medications ?Medication ?Instructions ?Recorded ?Confirmed acetaminophen 300 mg-codeine 30 mg 2 tab PO BID Pain 01/24/24 01/24/24 tablet levothyroxine 100 mcg tablet 100 mcg PO DAILY 01/24/24 01/24/24 losartan 25 mg tablet 25 mg PO BEDTIME 01/24/24 01/24/24 omeprazole 20 mg tablet,delayed 20 mg PO BEDTIME 01/24/24 01/24/24 release paroxetine HCl 40 mg tablet 40 mg PO BEDTIME 01/24/24 01/24/24 rizatriptan 10 mg tablet 10 mg PO DAILY PRN Migraine 01/24/24 01/24/24 Headache simvastatin 20 mg tablet 20 mg PO BEDTIME 01/24/24 01/24/24 topiramate 50 mg tablet 50 mg PO BEDTIME 01/24/24 01/24/24 zolpidem 10 mg tablet 5 - 10 mg PO BEDTIME PRN Insomnia 01/24/24 01/24/24 Previous Rx's ?Medication ?Instructions ?Recorded aluminum-magnesium hydroxide 200 30 ml PO Q4H PRN Heartburn #260 mL 01/26/24 mg-200 mg/5 mL oral suspension (MAG-AL) famotidine 40 mg tablet (Pepcid) 40 mg PO BEDTIME #30 tabs 01/26/24 lidocaine HCl 2 % mucosal solution 15 ml mucous membrane Q4H PRN 01/26/24 Heartburn #120 mL omeprazole 40 mg capsule,delayed 40 mg PO DAILY #30 caps 01/26/24 release oxycodone 5 mg tablet 5 mg PO Q4H PRN Pain, 01/26/24 Moderate(Pain Scale 4-6) #20 tabs nitrofurantoin 100 mg PO Q12H 5 days #10 caps 03/03/24 monohydrate/macrocrystals 100 mg capsule (Macrobid) Allergies Allergy/AdvReac Type Severity Reaction Status Date / Time Iodinated Contrast Media Allergy Hives Verified 03/03/24 09:32 [IV Contrast Dye] Penicillins [PCN] Allergy Hives Verified 03/03/24 09:32 pregabalin [From Lyrica] Allergy Unknown Verified 03/03/24 09:32 Review of Systems Review of Systems: Constitutional: No Fever, No Chills ENT/Mouth: No Ear Pain, No Nasal Congestion, No sore throat, No Rhinorrhea, No Swallowing Difficulty Cardiovascular: + Chest Pain, + SOB Respiratory: No Cough, No Sputum, No Wheezing Gastrointestinal: + Nausea, No Vomiting, No Diarrhea, No Constipation, + Abdominal pain (chronic) Genitourinary: No Dysuria, No Urinary Frequency, No Hematuria, No Urinary Incontinence/retention, No Urgency, No Flank Pain Musculoskeletal: No joint pain, No Myalgias, No Joint Swelling Skin: No Skin Lesions, No rash Neuro: No Weakness, No Numbness, + Paresthesias, +lightheaded Yes all other systems are reviewed and are negative Constitutional: Constitutional: Reports as per HPI Neurologic: Denies Abnormal speech present [facility] Past Medical History Attestation statement: The following information was validated with the patient. Source: old records reviewed Medical History Hypothyroidism Hypertension Social History Social History Household Members: Spouse Housing: House Do you presently have visiting nurse or other home services: No Alcohol intake: current Alcohol intake frequency: a few times a month Patient Tobacco Use Status: Former Tobacco user Smoked in Last 30 Days: Yes Use of substances other than those prescribed or required for medical reasons: No Advance Directives: No Advance Directives Information Provided: No Do you have a plan to hurt others: No Plan service: No Physical Exam ED Vital Signs: Vital Signs - 24 hr 03/03/24 09:26 03/03/24 09:37 03/03/24 09:50 Temperature 98.0 F Pulse Rate 98 81 Respiratory Rate 20 20 Blood Pressure 138/96 H 129/89 Pulse Oximetry 96 Oxygen Delivery Method Room Air 03/03/24 09:51 03/03/24 09:53 03/03/24 12:28 Temperature 98.3 F Pulse Rate 88 104 H 71 Respiratory Rate 14 Blood Pressure 122/84 132/93 H 136/97 H Pulse Oximetry 97 Oxygen Delivery Method Room Air 03/03/24 12:29 03/03/24 14:04 Temperature 98 F Pulse Rate 68 Respiratory Rate 19 Blood Pressure 119/74 143/93 H Pulse Oximetry 98 Oxygen Delivery Method Room Air BMI result Body Mass Index 28.3 Const General: cooperative, healthy appearing and no acute distress Orientation/consciousness: patient oriented x3 Limitations: no limitations HENMT Head: Yes normal to inspection and Yes atraumatic Ears: hearing grossly normal bilaterally General nose exam: Normal external nose present Face and sinus: Yes normal facial exam Eyes General: appearance normal, both eyes and all related structures EOM: EOMs intact bilaterally Neck Neck: Yes normal visual inspection and Yes no meningeal signs Resp Effort & Inspection: normal respiratory effort and no respiratory distress Auscultation: clear to auscultation bilaterally Cardio Rate: regular rate Heart sounds: S1 normal heart sound present and S2 normal heart sound present GI Inspection: Yes normal to inspection Palpation (GI): Soft to palpation, Tenderness to palpation present (GI) in the LLQ (mildly tender (chronic per patient)), no guarding and not rigid General: Yes no CVA tenderness Back/Spine/Pelvis Back: no CVA tenderness Skin Rashes: no rashes Wounds: no wounds Neuro General: patient oriented x3, tone normal, moves all extremities, no meningeal signs, no focal motor deficits and CN's II-XI intact bilaterally Cranial nerves: Yes CN's II-XII intact bilaterally Cognition (Neuro): normal cognition Speech: No Abnormal speech present Motor exam (neuro): 5/5 motor strength present throughout, Pronator motor function not present and no tremor noted Coordination: [id number]-[id number] test normal Romberg Test: Negative Extrem General: Yes normal to inspection Course Course Course Narrative: -1344--no leukocytosis. Initial troponin and repeat troponin negative, mi unlikely. -UA infected > will discharge home on Macrobid -chest x-ray unremarkable. Orthostatic vital signs negative. Patient reports symptomatic improvement, requesting discharge at this time. Recommended close PCP follow-up Results discussed with patient including worrisome signs and symptoms and strict return precautions, and when to return to the emergency department. They verbalized understanding and feel safe for discharge at this time. Medications Administered Discontinued Medications Generic Name Dose Route Start Last Admin Trade Name Freq PRN Reason Stop Dose Admin Sodium Chloride 500 mls @ 999 mls/hr 03/03/24 09:45 03/03/24 12:57 Ns IV 03/03/24 10:15 Infused .Q31M ROSI Infusion Ketorolac Tromethamine 15 mg 03/03/24 12:44 03/03/24 13:02 Ketorolac Tromethamine 15 Mg/Ml Vial IVPUSH 03/03/24 12:45 15 mg ONCE ONE Administration Medical Decision Making Medical Decision Making [facility] Narrative: 53-year-old female with a past medical history of diverticulitis complicated by colectomy with colostomy revision, prediabetic, HTN, migraines, presenting to the ED complaining of presyncopal episode with lightheadedness, chest pain, SOB, arm heaviness and tingling around 06:45AM. On exam vital signs stable, NAD, nontoxic appearing, no focal neuro deficits, abdomen soft with mild left lower quadrant tenderness, chronic per patient since diverticulitis. Concern for atypical ACS vs metabolic abnormalities. Rule out infectious etiology. Low suspicion for acute diverticulitis with chronic symptoms. Low suspicion for CVA/TIA or cervical dissection. Plan: EKG, labs, UA, orthostatics, IVF, re-evaluate Please refer to course for remaining clinical decision making, interpretation of labs/imaging results, and discussions with consultants and/or family members. Differential Diagnosis Differential Diagnoses: The differential diagnosis associated with the presentation includes As above Admission/Observation Consideration of admission/observation: Escalation of care including admission/observation considered Lab Data [facility] Lab Attestation statement: I reviewed the patient's lab results. 03/03/24 10:08 03/03/24 10:08 Labs: Lab Results 05/28/24 05/28/24 05/28/24 Range/Units 10:08 13:01 13:16 WBC 7.7 (4.8-10.8) X10*3/uL RBC 5.70 H (4.20-5.50) X10*6/uL Hgb 16.5 H (12.0-16.0) g/dl Hct 47.9 H (37.0-47.0) % MCV 84.0 (80.0-98.0) fL MCH 28.9 (27.0-33.0) pg MCHC 34.4 (31.0-35.0) g/dl RDW 13.2 (11.0-16.0) % Plt Count 257 (160-400) X10*3/uL MPV 10.0 (9.4-12.3) fL Immature Gran % (Auto) 0.3 (0.0-0.4) % Neut % (Auto) 60.1 (45-73) % Lymph % (Auto) 30.9 (20-40) % Mower % (Auto) 6.3 (2-11) % Eos % (Auto) 1.4 (0-4) % Baso % (Auto) 1.0 (0-2) % Lymph # (Auto) 2.4 (1.2-4.9) X10*3/uL Mower # (Auto) 0.5 (0.1-1.2) X10*3/uL Eos # (Auto) 0.1 (0.0-0.4) X10*3/uL Baso # (Auto) 0.1 (0.0-0.2) X10*3/uL Abs Immat Gran (auto) 0.02 (0.00-0.03) X10*3/uL Absolute Neuts (auto) 4.6 (2.0-8.3) x10*3/uL Absolute Nucleated RBC 0.000 (0.0-0.012) X10*3/uL Nucleated RBC % (auto) 0.0 (0.0-0.2) /100WBC Sodium 139 (135-145) mmol/L Potassium 3.7 (3.3-5.1) mmol/L Chloride 105 (96-108) mmol/L Carbon Dioxide 23 (22-29) mmol/L Anion Gap 15 (12-20) BUN 17 H (9-16) mg/dL Creatinine 0.87 (0.5-1.4) mg/dL Estim Creat Clear Calc 83.1 Estimated GFR > 60 Random Glucose 155 H (60-115) mg/dL Calcium 10.1 (8.4-10.2) mg/dL Magnesium 1.8 (1.6-2.6) mg/dL Total Bilirubin 0.3 (0.0-1.0) mg/dL Direct Bilirubin 0.1 (0.0-0.5) mg/dL AST 18 (5-31) U/L ALT 29 (0-31) U/L Alkaline Phosphatase 114 (39-117) U/L Troponin I High Sens < 2.7 < 2.7 (<3.5-17.0) ng/L Total Protein 7.8 (6.5-8.0) g/dL Albumin 4.8 (3.5-5.0) g/dL Lipase 32 (8-78) U/L Urine Color Dark Yellow Urine Appearance Clear Urine pH 6.0 (5.0-9.0) Ur Specific [place] >= 1.030 H (1.005-1.025) Urine Protein Negative (Neg-Trace) mg/dL Urine Glucose (UA) 250 H (Negative) mg/dL Urine Ketones Trace (Negative) mg/dL Urine Blood Negative (Negative) Urine Nitrite Negative (Negative) Ur Leukocyte Esterase Small (1+) H (Negative) Urine RBC 0-2 (0-2) /HPF Urine WBC 6-10 H (0-5) /HPF Ur Squamous Epith Cells 3-5 (0-2) /HPF Urine Bacteria 1+ (None Seen) Hyaline Casts 3-5 (0-2) /LPF Independent Interpretation I performed an independent interpretation of an: EKG (My interpretation EKG normal sinus rhythm rate of 89. ND interval 156. QTC 428. No STEMI. No priors to compare) Radiology Impression Discussion of test interpretation with radiology: I have reviewed the radiologist's reading. External Record Review External record reviewed: Inpatient record, Office record, Outpatient record, Prior outpatient labs, Prior outpatient radiology, Primary care record and Outside ED record Tests considered The following testing was considered but not selected: As above Prescription Management I considered prescription management with: Pain Medication and Antibiotic Chronic Conditions Patient?s care impacted by: Hypertension and Other (Diverticulitis) Discharge Plan Discharge Clinical Impression: Lightheadedness, UTI (urinary tract infection) Patient Disposition: Home, Self-Care Instructions: Urinary Tract Infection in Women (DC), Lightheadedness (ED) Additional Instructions: You have a urinary tract infection. Macrobid is an antibiotic please take as prescribed Increase fluid intake Please call your doctor for close fall follow-up If you develop constant or worsening symptoms, chest pain/shortness of breath, lightheadedness/dizziness, passing out please return to the ED Prescriptions: New nitrofurantoin monohyd/m-cryst [Macrobid] 100 mg capsule 100 mg PO Q12H 5 Days Qty: 10 0RF Rx Instructions: must administer with a meal/food No Action rizatriptan 10 mg tablet 10 mg PO DAILY PRN (Reason: Migraine Headache) acetaminophen-codeine 300-30 mg tablet 2 tab PO BID levothyroxine 100 mcg tablet 100 mcg PO DAILY simvastatin 20 mg tablet 20 mg PO BEDTIME losartan 25 mg tablet 25 mg PO BEDTIME zolpidem 10 mg tablet 5 - 10 mg PO BEDTIME PRN (Reason: Insomnia) Rx Instructions: TAKE 5 MG, MAY REPEAT IF NEEDED paroxetine HCl 40 mg tablet 40 mg PO BEDTIME topiramate 50 mg tablet 50 mg PO BEDTIME omeprazole 20 mg Tablet,Delayed Release (Dr/Ec) 20 mg PO BEDTIME lidocaine HCl 2 % Solution 15 ml mucous membrane Q4H PRN (Reason: Heartburn) Qty: 120 1RF oxycodone 5 mg Tablet 5 mg PO Q4H PRN (Reason: Pain, Moderate(Pain Scale 4-6)) Qty: 20 0RF Rx Instructions: Partial Fill upon patient request. MAG-AL 200-200 mg/5 mL Suspension 30 ml PO Q4H PRN (Reason: Heartburn) Qty: 260 0RF omeprazole 40 mg capsule,delayed release(DR/EC) 40 mg PO DAILY Qty: 30 0RF famotidine [Pepcid] 40 mg tablet 40 mg PO BEDTIME Qty: 30 0RF Referrals: Suman Tijerina MD [Primary Care Provider] - 3 days Stand Alone Forms: Work/School Release Interventions: ED Discharge Assessment Last Done: 03/03/24 14:04 Discharge Date/Time: 03/03/24 14:04 Print Language: Frisian
--- NOTE | 2024-03-03 09:39 | ECG_ITS ---
Test Reason : DIZZNESS Blood Pressure : / mmHG Vent. Rate : 089 BPM Atrial Rate : 089 BPM P-R Int : 156 ms QRS Dur : 082 ms QT Int : 352 ms P-R-T Axes : 013 006 028 degrees QTc Int : 428 ms Normal sinus rhythm Nonspecific T wave abnormality Abnormal ECG No previous ECGs available Referred By: Juanita Richter Electronically Signed By:ELIZABETH MURGUIA
--- NOTE | 2024-03-03 10:01 | PC.NURSE ---
pt is alert and oriented, skin pwd, respirations even and unlabored, ls clear, pt reports around 0645 started to feel dizzy not spinning but felt like when she moved her head to the side things were moving, lightheaded and had some chest pressure that has resolved since then and numbness and tingling on the hands, all neuro are in tact at this time, sinus to sinus tach on the monitor raning from 105-88's pt is also having left lower abd/pelvis pain but denies vomiting pt was just started on HCTZ last
[2024-03-03] MEDS: 0.9 % Sodium Chloride 500 ML 999 ML IV (10:09)
[2024-03-03 10:12] LABS: MANUAL DIFF FLAG NO
[2024-03-03 10:13] LABS: Basophils Absolute Auto 0.1 X10*3/uL (0.0-0.2); Eosinophils Absolute Auto 0.1 X10*3/uL (0.0-0.4); Eosinophils Percent Auto 1.4 % (0-4); Hematocrit 47.9 % (37.0-47.0); Hemoglobin 16.5 g/dl (12.0-16.0); Imm Gran Abs Auto 0.02 X10*3/uL (0.00-0.03); Imm Gran Pct Auto 0.3 % (0.0-0.4); Lymphocytes Absolute Auto 2.4 X10*3/uL (1.2-4.9); Lymphocytes Percent Auto 30.9 % (20-40); Mean Corpuscular HGB Conc 34.4 g/dl (31.0-35.0); Mean Corpuscular Hemoglobin 28.9 pg (27.0-33.0); Monocytes Absolute Auto 0.5 X10*3/uL (0.1-1.2); Monocytes Percent Auto 6.3 % (2-11); Neutrophils Absolute Auto 4.6 x10*3/uL (2.0-8.3); Neutrophils Percent Auto 60.1 % (45-73); Platelet Count 257 X10*3/uL (160-400); Red Cell Distribution Width 13.2 % (11.0-16.0); White Blood Count 7.7 X10*3/uL (4.8-10.8)
[2024-03-03 10:27] LABS: Alanine Aminotransferase 29 U/L (0-31); Albumin Level 4.8 g/dL (3.5-5.0); Alkaline Phosphatase 114 U/L (39-117); Anion Gap 15 (12-20); Aspartate Amino Transferase 18 U/L (5-31); Bilirubin Direct 0.1 mg/dL (0.0-0.5); Bilirubin Total 0.3 mg/dL (0.0-1.0); Blood Urea Nitrogen 17 mg/dL (9-16); Calcium 10.1 mg/dL (8.4-10.2); Carbon Dioxide 23 mmol/L (22-29); Chloride 105 mmol/L (96-108); Creatinine Clr Calc Pharmacy 83.1; Estimated Glomerular Filt Rate > 60; Glucose Random 155 mg/dL (60-115); Lipase 32 U/L (8-78); Magnesium 1.8 mg/dL (1.6-2.6); Potassium 3.7 mmol/L (3.3-5.1); Sodium 139 mmol/L (135-145); Total Protein 7.8 g/dL (6.5-8.0)
[2024-03-03 10:37] LABS: Troponin-I High Sensitivity < 2.7 ng/L (<3.5-17.0)
--- NOTE | 2024-03-03 12:50 | PC.NURSE ---
pt is reporting lower abd pain that is getting worse, pain at 7/10 at this time, md aware
[2024-03-03] MEDS: Ketorolac Tromethamine 15 MG/ML VIAL IVPUSH (13:02)
[2024-03-03 13:23] LABS: Appearance Urine Clear; Color Urine Dark Yellow; Glucose Urine UA 250 mg/dL (Negative); Leukocyte Esterase Urine Small (1+) (Negative); Nitrite Urine Negative (Negative); Specific Gravity - Urine >= 1.030 (1.005-1.025); UMIC TRIGGER UACC YES; Urine Blood Negative (Negative); Urine Ketones Trace mg/dL (Negative); Urine Protein Negative (Neg-Trace)
[2024-03-03 13:25] LABS: Bacteria Urine 1+ (None Seen); RBC Urine 0-2 /HPF (0-2); UACC Culture Trigger YES
[2024-03-03 13:32] LABS: Troponin-I High Sensitivity < 2.7 ng/L (<3.5-17.0)
== END 2024-03-03 14:04 | disposition home or self-care (01) ==
PROVIDERS: Physician Assistant; Emergency Provider Emergency Medicine; PCP Internal Medicine
DX: N39.0 Urinary tract infection, site not specified (principal); R42 Dizziness and giddiness; R07.9 Chest pain, unspecified; I10 Essential (primary) hypertension; R06.02 Shortness of breath; Z79.899 Other long term (current) drug therapy
CPT/HCPCS: 36415; 71045; 80048; 80076; 81001; 83690; 83735; 84484; 85025; 87086; 93005; 96361; 96374; 99284; 99285; J1885

== ENCOUNTER → 2024-03-03 09:39 | Outpatient (BNV) | payer OTHER, SELFPAY | PROVIDERS: Emergency Provider Emergency Medicine; PCP Internal Medicine; Visit Provider Internal Medicine | DX: R94.31 Abnormal electrocardiogram [ECG] [EKG] (principal) | CPT/HCPCS: 93010 ==

== ENCOUNTER 2025-06-23 16:09 | Outpatient (AMB) | payer OTHER, SELFPAY ==
--- NOTE | 2025-06-23 16:09 | MHC.OFFVIS ---
Intake Visit Reasons: ENP-pain in right arm, MRI c-spine Allergies Iodinated Contrast Media (IV Contrast Dye) Allergy (Verified 03/03/24 09:32) Hives Penicillins (PCN) Allergy (Verified 03/03/24 09:32) Hives pregabalin (From Lyrica) Allergy (Verified 03/03/24 09:32) Unknown Medication List - Last Reconciled 06/23/25 by Lucia Hudson MD acetaminophen-codeine 300-30 mg 2 tabs PO BID aluminum-magnesium hydroxide 200-200 mg/5 mL (MAG-AL) 30 mL PO Q4H PRN famotidine (Pepcid) 40 mg PO BEDTIME levothyroxine 100 mcg PO DAILY lidocaine HCl 2% 15 mL mucous membrane Q4H PRN losartan 25 mg PO BEDTIME nitrofurantoin monohyd/m-cryst 100 mg (Macrobid) 100 mg PO Q12H 5 days omeprazole 20 mg PO BEDTIME omeprazole 40 mg PO DAILY oxycodone 5 mg PO Q4H PRN paroxetine HCl 40 mg PO BEDTIME rizatriptan 10 mg PO DAILY PRN simvastatin 20 mg PO BEDTIME topiramate 50 mg PO BEDTIME zolpidem 5 - 10 mg PO BEDTIME PRN HPI Comments Details: The patient is a 54-year-old female presenting with neurological symptoms, including weakness, numbness, tingling in extremities, joint pain, and severe fatigue. The patient reports a history of a spontaneous hip fracture in March 2013 and subsequent anterior hip replacement, which was followed by localized numbness and complaints suggestive of nerve damage post-operatively. Additionally, she experienced a significant hypertensive emergency in January, with associated paresthesia in the arms and a diagnosis of lymphocytic colitis in June. Her current symptoms are characterized by persistent blurred vision, generalized joint pain, frequent migraines managed by topiramate, and usage of Zoloft for mood stabilization. Diagnosed recently with diabetes, she expresses concern about potential neuropathy and the cumulative burden of multiple autoimmune-like disorders perceived as her body attacking itself. [facility] revealed no indications of arthritis, and her neurological workup, including MRI studies, presents no definitive etiological findings, pointing towards a potential neuromuscular origin of her symptoms. [facility] Medical History Hypothyroidism Hypertension Social History Household Members: Spouse Housing: House Do you presently have visiting nurse or other home services: No Alcohol intake: current Alcohol intake frequency: a few times a month Patient Tobacco Use Status: Former Tobacco user service: No Review of Systems Const Details: - General: Reports severe fatigue, weakness - Cardiovascular: Reports a past severe hypertensive episode - Neurological: Reports numbness, tingling, joint pain, blurred vision, headaches, burning sensation in arms - Endocrine: Reports diagnosis of diabetes mellitus and Graves' disease - Gastrointestinal: Reports non-blanchable petechiae, lymphocytic colitis - Musculoskeletal: Reports pain and weakness in joints, difficulty climbing stairs - Dermatologic: Reports rash on legs Physical Exam Neuro Other: Mental Status: Alert and oriented to person, place, and time. Normal attention. Normal spontaneous speech, fluency, and comprehension. No obvious issues with mood and memory. Affect is appropriate. Cranial Nerves: CN II: Visual jacobo full to confrontation, visual acuity intact. CN III, IV, : Pupils equal, round, reactive to light and accommodation. Extraocular movements are normal. CN V: Facial sensation is normal. CN VII: Facial movements symmetrical. CN VIII: Hearing intact to bedside conversation is normal. CN IX, X: Palate elevates symmetrically. CN XI: Shoulder shrug and head turn symmetrical. CN XII: Tongue midline without atrophy or fasciculations. Motor: Bulk and tone normal in all extremities. No significant muscle weakness in arms and legs. No drift. Reflexes: Deep tendon reflexes 2+ and symmetric. Plantar response down-going bilaterally. Coordination: Bjboxe-jd-moek and gmde-nq-oxee testing normal. No dysmetria. Gait and Station: No obvious gait abnormality. No ataxia or instability. Extrapyramidal: Full facial expressions and blinking. No rigidity. Movements are appropriate with no tremor or abnormality. Speech: Normal; no dysarthria or tremor. Assessment & Plan Assessment & Plan (1) Polyarthralgia: Code(s): M25.50 - Pain in unspecified joint Category: Medical (2) Myopathy: Code(s): G72.9 - Myopathy, unspecified Category: Medical (3) Fibromyalgia: Comment: MRI brain WO at [facility] in April 2025: Minimal MVD MRI C spine at [facility] in Dec 2024: Mod sponylosis w/o cord compression MRI LS spine at [facility] in 2023: Diff DJD Code(s): M79.7 - Fibromyalgia Category: Medical Plan Impression recommendations: 54 years old woman who reported that she had spontaneous left hip fracture few years ago that was treated surgically. After that she developed some swelling and numbness in left hip and thigh area. More recently she developed number of symptoms including generalized but mostly proximal weakness, tingling and numbness in different areas of her body including legs and arms, sometime blurred vision, and aching and pain in neck. She had multiple investigations including MRI of brain, MRI of cervical spine and lumbosacral spine during last 2 years. I reviewed all those images and did not find any obvious explanation for her symptoms. She said that she has seen a sound technician supervisor a number of tests were done, all negative. Exact etiology for symptoms is unclear. I have requested EMG nerve conduction study to rule out any possibility of nerve or muscle disorder and couple of test to rule out any possibility of common rheumatological disease. Orders: Orders NE electromyogram (EMG) Today G72.9 - Myopathy, unspecified, M25.50 - Pain in unspecified joint, M79.7 - Fibromyalgia Creatine Kinase Total Today G72.9 - Myopathy, unspecified, M25.50 - Pain in unspecified joint, M79.7 - Fibromyalgia Erythrocyte Sedimentation Rate Today G72.9 - Myopathy, unspecified, M25.50 - Pain in unspecified joint, M79.7 - Fibromyalgia CRP High Sensitivity Today G72.9 - Myopathy, unspecified, M25.50 - Pain in unspecified joint, M79.7 - Fibromyalgia Anti DNA DS Antibody Today G72.9 - Myopathy, unspecified, M25.50 - Pain in unspecified joint, M79.7 - Fibromyalgia NE nerve conduction velocity Today G72.9 - Myopathy, unspecified, M25.50 - Pain in unspecified joint, M79.7 - Fibromyalgia Coding Level of Care Code New Pt Level 5 (55519) Diagnoses Polyarthralgia M25.50 Myopathy G72.9 Fibromyalgia M79.7
== END 2025-06-23 17:00 | disposition home or self-care (01) ==
LOC: HO.HSM 16:09
PROVIDERS: PCP Internal Medicine; Visit Provider Psychiatry & Neurology Neurology
DX: M79.7 Fibromyalgia (principal); G72.9 Myopathy, unspecified
CPT/HCPCS: 99204

== ENCOUNTER 2025-07-02 10:33 | Outpatient (REF) | payer OTHER, SELFPAY ==
--- OUTSIDE RECORDS SUMMARY | 2025-07-02 12:05 | XMS_ITS | Clinical Summary ---
Author Organization [facility] Address [address] [place] [address] Care Team Providers Care Bridge Opener Name Role Phone Unavailable Primary Care Provider Unavailabl e Social History Tobacco Use Types Packs/Day Years Used Date Smoking Tobacco: Never Assessed Sex and Gender Information Value Date Recorded Sex Assigned at Not on file Gender Identity Not on file Sexual Orientation Not on file Job Start Date Occupation Industry Not on file Not on file Not on file Plan of Treatment Health Maintenance Due Date Last Done Comments Hepatitis B Vaccines (1 of 3 - 3-dose series) 1968 Hepatitis C Screening 1968 COVID-19 Vaccine (#1) 02/15/1969 Depression Screening 1980 Preventative Health Evaluation 1986 DTap / Tdap / Td (1 - Tdap) 1987 Cervical Cancer Screening (P ap Smear) 1989 Colon Cancer Screening (Colonoscopy) 2013 Breast Cancer Screening (Mammogram) 2018 Shingrix-Zoster Vaccine (1 of 2) 2018 Influenza Vaccine (#1) 2025 Pneumococcal Vaccine Aged Out No long er eligible based on patient's age to complete this topic RSV Ped < 20 months Aged Out No longe r eligible based on patient's age to complete this topic
--- OUTSIDE RECORDS SUMMARY | 2025-07-02 12:05 | XMS_ITS | Clinical Summary ---
Author Organization [facility] [address] Address [address] [place] [address] Phone Care Team Providers Care Spanner Operator Name Role Phone Suman Tijerina MD Primary Care Provider [phone] Allergies Active Allergy Reactions Criticality Noted Date Comments Iodinated Contrast Media 06/02/2024 Metformin 06/02/2024 Penicillin G 06/02/2024 Medications acetaminophen (TYLENOL) 325 mg tablet Take 2 tablets (650 mg total) by mouth every 6 (six) hours if needed. Active PARoxetine CR (PAXIL-CR) 25 mg 24 hr tablet Take 1 tablet (25 mg total) by mouth 1 (one) time each day in the morning. Active simvastatin (ZOCOR) 20 mg tablet Take 1 tablet (20 mg total) by mouth at bedtime. Active topiramate (TOPAMAX) 50 mg tablet Take 1 tablet (50 mg total) by mouth 2 (two) times a day. Active acetaminophen-co deine (TYLENOL #3) 300-30 mg per tablet TAKE 2 TABLETS BY MOUTH FOUR TIMES DAILY FOR 7 DAYS NEEDED 4 Active ergocalciferol (VITAMIN D-2) 1,250 mcg (50,000 unit) capsule TAKE 1 CAPSULE BY MOUTH EVERY WEEK FOR 12 WEEKS 4 Active hydroCHLOROthiaz rohan (HYDRODIURIL) 25 mg tablet Take 1 tablet (25 mg total) by mouth 1 (one) time each day. 4 Active hyoscyamine (LEVSIN) 0.125 mg SL tablet TAKE 1 TABLET BY MOUTH UNDER THE TONGUE AND ALLOW TO DISSOLVE THREE TIMES DAILY NEEDED 4 Active meloxicam (MOBIC) 15 mg tablet 4 Active rizatriptan (MAXALT) 10 mg tablet Take 1 tablet (10 mg total) by mouth 1 (one) time each day if needed. 4 Active sertraline (ZOLOFT) 100 mg tablet 4 Active zolpidem (AMBIEN) 10 mg tablet TAKE 1/2 TO 1 TABLET BY MOUTH EVERY NIGHT AT BEDTIME NEEDED 4 Active levothyroxine (SYNTHROID, LEVOTHROID) 100 mcg tablet Take 1 tablet (100 mcg total) by mouth 1 (one) time each day in the morning. 4 Active benzonatate (TESSALON) 100 mg capsule TAKE 1 CAPSULE BY MOUTH THREE TIMES DAILY FOR 10 DAYS NEEDED 4 Active cyclobenzaprine (FLEXERIL) 10 mg tablet Take 1 tablet (10 mg total) by mouth at bedtime as needed. 4 Active Voquezna 20 mg tabletIndication s:Gastroesophage al reflux disease without esophagitis TAKE 1 TABLET BY MOUTH DAILY 30 tablet [address] (ENTOCORT EC) 3 mg 24 hr capsuleIndicatio ns:Lymphocytic colitis Take 1 capsule (3 mg total) by mouth 2 (two) times a day. 60 each 2 5 08/11/20 25 Active Active Problems Problem Noted Date Diagnosed Date Lymphocytic colitis 08/12/2024 Gastroesophageal reflux disease without esophagi tis 08/12/2024 Left lower quadrant abdominal pain 06/02/2024 Encounters Date Type Department Care Team Description 04/12/2025 3:58 PM EDT - 04/12/2025 11:59 PM EDT Hospital Encounter [facility] MRI [address] [place] [address] Memory loss Discharge Disposition: Home or Self Care from Last 3 Months Medical History Medical History Date Comments Lymphocytic colitis 08/12/2024 Gastroesophageal reflux disease without esophagi tis 08/12/2024 Social History Tobacco Use Types Packs/Day Years Used Date Smoking Tobacco: Former Cigarettes Tobacco Cessation:Counseling Given: Not Answered Alcohol Use Standard Drinks/Week Comments Yes 1 (1 standard drink = 0.6 oz pur e alcohol) Comments Unknown Sex and Gender Information Value Date Recorded Sex Assigned at Not on file Legal Sex Female 7:36 AM EST Gender Identity Not on file Sexual Orientation Not on file Obstetrics History Last Filed Vital Signs Vital Sign Reading Time Taken Comments Blood Pressure 149/87 06/02/2024 2:14 PM EDT Pulse 87 06/02/2024 2:14 PM EDT Temperature - - Respiratory Rate - - Oxygen Saturation - - Inhaled Oxygen Concentration - - Weight 85.7 kg (189 lb) 12/10/2024 8:24 AM EST Height 172.7 cm (5' 8 ) 12/10/2024 8:24 AM EST Body Mass Index 28.74 12/10/2024 8:24 AM EST Plan of Treatment Health Maintenance Due Date Last Done Comments Breast Cancer Screening 1968 DTaP,Tdap,and Td Vaccines (1 - Tdap) 1987 Hepatitis B Vaccines (1 of 3 - 19+ 3-dose series) 1987 Cervical Cancer Screening: Pap Smear 1989 Pneumococcal Vaccine: 50+ Years (1 of 1 - PCV) 2018 Zoster Vaccines (1 of 2) 2018 Cholesterol Screening (Lipid Panel) 09/09/2022 Colorectal Cancer Screening: Colonoscopy 09/09/2022 HIV Screening 09/09/2022 Hepatitis C Screening 09/09/2022 Social Influencers of Health Screening 09/09/2022 Hypertension/CHF/CAD Annual BMP Blood Test 08/12/2024 Depression Screening 10/07/2024 COVID-19 Vaccine ( season) 2025 03/30/2022, 12/02/2021, 01/02/2021, Additional history exists Influenza Vaccine (#1) 2025 , 07/19/2023, 08/15/2022, Additional history exists RSV Immunization Adult Patients (1 - 1-dose 75+ series) 2043 HIB Vaccines Aged Out No longer eligi ble based on patient's age to complete this topic HPV Vaccines Aged Out No longer eligi ble based on patient's age to complete this topic Hepatitis A Vaccines Aged Out No long er eligible based on patient's age to complete this topic IPV Vaccines Aged Out No longer eligi ble based on patient's age to complete this topic MMR Vaccines Aged Out No longer eligi ble based on patient's age to complete this topic Meningococcal ACWY Vaccine Aged Out N o longer eligible based on patient's age to complete this topic Meningococcal B Vaccine Aged Out No l onger eligible based on patient's age to complete this topic RSV Immunization Patients Under 20 months Aged Out No longer eligible based on patient's age to complete this topic Varicella Vaccines Aged Out No longer eligible based on patient's age to complete this topic Procedures Procedure Name Priority Date/Time Associated Diagnosis Comments MR BRAIN WO AND W CONTRAST Routine 04/12/2025 5:15 PM EDT Memory loss from Last 3 Months Results * MR Brain wo and w Contrast (04/12/2025 5:15 PM EDT) Anatomical Region Laterality Modality Head and Neck Magnetic Resonan ce 04/13/2025 8:56 AM EDT Impressions 04/13/2025 8:59 AM EDT Age commensurate MRI appearance of the brain. No acute findings. No abnormality to suggest an etiology for memory loss. -------- FINAL REPORT -------- Dictated By: Matthew Lazo Dictated Date: 04/13/2025 08:56 ET Assigned Physician: Matthew Lazo Reviewed and Electronically Signed By: Matthew Lazo Signed Date: 04/13/2025 08:59 ET Workstation ID: [id number] Transcribed By: Self Edit Transcribed Date: 04/13/2025 08:56 ET Narrative 04/13/2025 8:59 AM EDT PROCEDURE: Contrast-enhanced MRI of the brain. HISTORY: memory loss. TECHNIQUE: Multiplanar multisequence MRI of the brain with and without intravenous contrast. IV CONTRAST DOSE: 17 mL Dotarem from a 20 mL vial with 3 mL discarded. COMPARISON: None. FINDINGS: BRAIN: No diffusion abnormality. No mass or extra-axial fluid collection. No hydrocephalus. The major intracranial flow voids are preserved. Age commensurate ventricles and sulci. No abnormal enhancement. There are a few small foci of T2 prolongation in the supratentorial white matter; these are an age commensurate finding which are probably sequela of mild chronic microvascular ischemic disease. ORBITS: Normal. SINUSES/MASTOIDS: Normal. CALVARIUM: Normal. OTHER: The visualized skull base soft tissues are normal. Mild degenerative changes of the visible cervical spine. Procedure Note Matthew Lazo MD - 04/13/2025 PROCEDURE: Contrast-enhanced MRI of the brain. HISTORY: memory loss. TECHNIQUE: Multiplanar multisequence MRI of the brain with and withoutintravenous contrast. IV CONTRAST DOSE: 17 mL Dotarem from a 20 mL vial with 3 mL discarded. COMPARISON: None. FINDINGS: BRAIN: No diffusion abnormality. No mass or extra-axial fluid collection.No hydrocephalus. The major intracranial flow voids are preserved. Agecommensurate ventricles and sulci. No abnormal enhancement. There are afew small foci of T2 prolongation in the supratentorial white matter;these are an age commensurate finding which are probably sequela of mildchronic microvascular ischemic disease. ORBITS: Normal. SINUSES/MASTOIDS: Normal. CALVARIUM: Normal. OTHER: The visualized skull base soft tissues are normal. Milddegenerative changes of the visible cervical spine. IMPRESSION: Age commensurate MRI appearance of the brain. No acute findings. Noabnormality to suggest an etiology for memory loss. -------- FINAL REPORT -------- Dictated By: Matthew Lazo Dictated Date: 04/13/2025 08:56 ET Assigned Physician: Matthew Lazo Reviewed and Electronically Signed By: Matthew Lazo Signed Date: 04/13/2025 08:59 ET Workstation ID: [id number] Transcribed By: Self Edit Transcribed Date: 04/13/2025 08:56 ET Suman Tijerina MD [facility] MRI PROCEDURES Final Resul t from Last 3 Months Insurance [facility] [place] [id number] Care Teams Spanner Operator Relationship Specialty Start Date End Date Suman Tijerina MD [address] [place] [id number] PCP - General 07/25/21
== END 2025-07-02 10:34 | disposition home or self-care (01) ==
LOC: HO.LAB 10:33
PROVIDERS: Psychiatry & Neurology Neurology; PCP Internal Medicine; Visit Provider Internal Medicine
DX: M79.7 Fibromyalgia (principal); G72.9 Myopathy, unspecified; M25.50 Pain in unspecified joint
CPT/HCPCS: 36415; 82550; 85652; 86141; 86225

== ENCOUNTER 2025-07-05 15:26 | Outpatient (REF) | payer OTHER, SELFPAY ==
--- NOTE | 2025-07-05 15:28 | EMG_ITS ---
Chief complaint: Pain in joints Reason for referral: Myopathy, FM Referred by:?Dr Hudson Procedure done: Bilatera lower extremities NCS/EMG Description: Bilateral tibial and peroneal motor studies were performed. Tibial and peroneal F responses were obtained. Tibial H reflexes were obtained. Bilateral superficial peroneal, sural, and median and lateral mixed plantars sensory studies were performed. EMG needle examination was performed. All parameters were with a normal range except sensory amplitudes in feet that were diminished. 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 MTDD
--- OUTSIDE RECORDS SUMMARY | 2025-07-05 17:27 | XMS_ITS | Clinical Summary ---
Author Organization [facility] Address [address] [place] [address] Care Team Providers Care Family Consumer Scientist Name Role Phone Unavailable Primary Care Provider [...]
--- OUTSIDE RECORDS SUMMARY | 2025-07-05 17:27 | XMS_ITS | Clinical Summary ---
Author Organization [facility] [address] [facility] Address [address] [place] [address] Phone Care Team Providers Care Property Handler Name Role Phone Suman Tijerina MD Primary Care Provider [phone] Allergies Active Allergy Reactions Criticality Noted Date [...] - 04/12/2025 11:59 PM EDT Hospital Encounter [facility] MRI [address] [place] [address] Memory loss Discharge Disposition: Home [...] Signed Date: 04/13/2025 08:59 ET Workstation ID: [id number] Transcribed By: Self Edit Transcribed Date: 04/13/2025 [...] Signed Date: 04/13/2025 08:59 ET Workstation ID: [id number] Transcribed By: Self Edit Transcribed Date: 04/13/2025 08:56 ET Suman Tijerina MD [facility] [place] PROCEDURES Final Resul t from Last 3 Months Insurance [facility] [place] [place] [id number] Care Teams Property Handler Relationship Specialty Start Date End Date Suman Tijerina MD [address] [place] [id number] PCP - General 07/25/21
== END 2025-07-05 15:27 | disposition home or self-care (01) ==
LOC: HO.NEURO 15:26
PROVIDERS: PCP Internal Medicine; Visit Provider Psychiatry & Neurology Neurology
DX: M25.50 Pain in unspecified joint (principal); G72.9 Myopathy, unspecified; M79.7 Fibromyalgia
CPT/HCPCS: 95886; 95913

== ENCOUNTER → 2025-07-05 15:28 | Outpatient (BNV) | payer OTHER, SELFPAY | PROVIDERS: PCP Internal Medicine; Visit Provider Psychiatry & Neurology Neurology | DX: G62.89 Other specified polyneuropathies (principal) | CPT/HCPCS: 95886; 95913 ==

== ENCOUNTER 2025-08-05 15:49 | Outpatient (AMB) | payer OTHER, SELFPAY ==
--- NOTE | 2025-08-05 15:53 | A.OFFVIS_ITS ---
Intake Visit Reasons: RESULTS Allergies Iodinated Contrast Media (IV Contrast Dye) Allergy (Verified 03/03/24 09:32) Hives Penicillins (PCN) Allergy (Verified 03/03/24 09:32) Hives pregabalin (From Lyrica) Allergy (Verified 03/03/24 09:32) Unknown HPI Comments Details: 54 years old woman who reported that she had spontaneous left hip fracture few years ago that was treated surgically. After that she developed some swelling and numbness in left hip and thigh area. More recently she developed number of symptoms including generalized but mostly proximal weakness, tingling and numbness in different areas of her body including legs and arms, sometime b lurred vision, and aching and pain in neck. She had multiple investigations including MRI of brain, MRI of cervical spine and lumbosacral spine during last 2 years. I reviewed all those images and did not find any obvious explanation for her symptoms. She said that she has seen a blood bank booking clerk a number of tests were done, all negative. Exact etiology for symptoms is unclear. I have requested EMG nerve conduction study to rule out any possibility of nerve or muscle disorder and couple of test to rule out any possibility of common rheumatological disease. [facility] Medical History Hypothyroidism Hypertension Social History Household Members: Spouse Housing: House Do you presently have visiting nurse or other home services: No Alcohol intake: current Alcohol intake frequency: a few times a month Patient Tobacco Use Status: Former Tobacco user service: No Physical Exam Neuro Other: Mental Status: Alert and oriented to person, place, and time. Normal attention. Normal spontaneous speech, fluency, and comprehension. Cranial Nerves: CN II: Visual jacobo full to confrontation, visual acuity intact. CN III, IV, : Pupils equal, round, reactive to light and accommodation. Extraocular movements are normal. CN V: Facial sensation is normal. CN VII: Facial movements symmetrical. CN VIII: Hearing intact to bedside conversation is normal. CN IX, X: Palate elevates symmetrically. CN XI: Shoulder shrug and head turn symmetrical. CN XII: Tongue midline without atrophy or fasciculations. Extrapyramidal: Full facial expressions and blinking. No rigidity. Movements are appropriate with no tremor or abnormality. Speech: Normal; no dysarthria or tremor. Results Reviewed Results Reviewed: Laboratory Tests 07/02/25 10:52 ESR 7 Double Strand DNA Ab 1 Laboratory Tests 07/02/25 10:52 Total Creatine Kinase 92 C-React Prot High Sens 5.4 H Assessment & Plan Assessment & Plan (1) Fibromyalgia: Comment: Labs: ESR, Ds DNA, CPK, at [facility] ok. 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 Her hemoglobin and hematocrit level were high and she was showing me different bruises. It is relationship is unclear. I have requested another set of CBC with manual slides. Also I reviewed her previous labs and ordered some atypical infection type of laboratories. Treatment of this condition is conservative and symptomatic. She was already taking gabapentin 300 mg at night and my suggestion was to try to take it to 2 3 times a day. It might decrease her pain and symptoms by 50%. Also she was educated about the finding of EMG nerve conduction study that only revealed mild sensory neuropathy in feet, which can happened with pressure on tarsal tunnels with prolonged standing. She was ad vised to always wear good comfortable shoes with shoe inserts. No follow-up appointment was made at this time with an understanding that she could come back if needed. Orders: Orders Complete Blood Count Man Dif Today M79.7 - Fibromyalgia Babesia IgG/IgM Today M79.7 - Fibromyalgia HIV Ab/Ag Today M79.7 - Fibromyalgia Syphilis Screen Today M79.7 - Fibromyalgia Coding Level of Care Code Est Pt Level 4 (83211) Diagnoses Fibromyalgia M79.7
--- OUTSIDE RECORDS SUMMARY | 2025-08-05 18:12 | XMS_ITS | Data Portability ---
Author Organization [place] [facility] Rom[facility] Harvey AONE [facility] Address [address] [place] [address] Care Team Providers [employer] Chair Name Role Phone JOANA JIMENEZ Primary Care Provider Assessment Encounter Date Assessment Date Assessment LastModified by Organization Details LastModified Time 10/24/2023 10/24/2023 HPI: Patient presents for 2nd viscosupplementation injection for the treatment of left knee pain. All questions are answered to the patient's satisfaction. Exam: Knee(s) examined to show no sign of infection. Skin is intact. Score of 2 or more on Kellgren Ulisses scale. Tenderness to palpation of joint line. Distal checks are intact. Assessment/Plan: Knee pain secondary to osteoarthritis. See the attached procedure note. Follow up per viscosupplementation protocol. Follow up sooner with any problems. At her next visit to the office we will plan on a set of x-rays of her left hip and evaluate that joint in further detail. This patient was seen and evaluated by Isabela Steele MS, PA-C in indirect conjunction with documenting/supervisin g provider Garcia Valencia MD. He agrees with history, physical examination, tests/diagnostic imaging, and treatment plan. Not available 10/24/2023 08:39:39 10/31/2023 10/31/2023 HPI: Patient presents for 3rd viscosupplementation injection for the treatment of left knee pain. All questions are answered to the patient's satisfaction. He states that the left knee is already feeling much improved following her first 2 viscosupplementation injections. She brings my attention to persistent pain at the left hip and thigh. She states that it has been present ever since the time of her surgery. Furthermore, she describes pain at the left low back that goes down the leg into the thigh posterior aspect of the calf with discomfort going into the foot and some of the toes. Exam: Knee(s) examined to show no sign of infection. Skin is intact. Score of 2 or more on Kellgren Ulisses scale. Tenderness to palpation of joint line. Distal checks are intact. X-ray of left hip is obtained during today's office visit. It shows her left total hip arthroplasty to be in good alignment and position with no signs of loosening or periprosthetic fracture. It is basically within normal limits. Assessment/Plan: She is given an order for a sed rate and C-reactive protein. If it comes back abnormal she will require left hip arthrocentesis. If it comes back normal then I will recommend further evaluation by a member of our spine team for evaluation of left lower extremity radiculopathy. Knee pain secondary to osteoarthritis. See the attached procedure note. Follow up per viscosupplementation protocol. Follow up sooner with any problems. This patient was seen and evaluated by Isabela Steele MS, PA-C in indirect conjunction with documenting/supervisin g provider Garcia Valencia MD. He agrees with history, physical examination, tests/diagnostic imaging, and treatment plan. Not available 10/31/2023 11:28:20 11/28/2023 11/28/2023 53-year-old fema le with left knee pain secondary to advanced osteoarthritis. After lengthy discussion regarding treatment options she has failed to respond to all conservative approaches and wishes to proceed with left-sided total knee arthroplasty. Follow-up with Dr. Valencia. This patient was seen and evaluated by Isabela Steele MS, PA-C in indirect conjunction with documenting/supervisin g provider Garcia Valencia MD. He agrees with history, physical examination, tests/diagnostic imaging, and treatment plan. Not available 11/28/2023 10:43:07 01/10/2024 01/10/2024 HPI : patient comes in for follow-up for her left knee pain. I had seen her in the past for her left hip replacement. This was done at outside facility. She has very continued complaints regarding some groin pain and some thigh pain and some hamstring pain. She also has focal knee pain with known knee arthritis. This patient is experiencing left knee pain for a period lasting greater than the last three months, which is severe (VAS score greater than or equal to 6 on a 0-10 scale) in intensity and the restriction of function (appropriate for a patient of this age) are intolerable. The pain substantially limits activities of daily living. In particular, walking tolerance and ability to stair climb is reduced. Conservative management such as non-steroidal anti-inflammatory medications available by prescription, physician directed therapy, ice and/or heat and activity modification have been minimally effective or deemed insufficient by the patient for a period lasting greater than 3-6 months in duration. Assistive devices and external support were not deemed by the patient to be helpful in improving their function. The patient is unable to tolerate further conservative measures, including physical therapy, due to the severity of arthritis and level of pain. Review of systems is negative for rapidly progressive neurological disorder, chest pain, shortness of breath, fevers, chills, or any signs of active or persistent local or systemic infection. Physical Exam : Patient is well nourished, well-developed, in no acute distress, with appropriate mood and affect. The patient is oriented to time, place, and person. Respirations are even and unlabored. Gait evaluation does reveal a limp. There is no inguinal adenopathy. Examination of the contralateral knee shows normal range of motion, strength, no tenderness, and intact skin. The affected limb is well-perfused, without skin lesions, shows a grossly normal motor and sensory examination. Left knee motion is significantly reduced and does cause significant pain. The knee moves from 5-125 degrees. The knee is stable within that [id number] to AP and ML stress. The alignment of the knee is neutral. Muscle strength is normal. Pedal pulses are palpable. Rotation of the left hip did not reproduce knee pain. Radiographs of the left knee from September 2023 demonstrate degenerative joint disease with joint space narrowing, osteophyte formation, and subchondral sclerosis. There is keaw-dk-fuwl articulation visible in the Deal view in the medial compartment. There is chondrocalcinosis present. Assessment/Plan : The patient is an appropriate candidate for consideration of left total knee replacement. An extensive discussion was conducted of the natural history of the disease and the variety of surgical and non-surgical treatment options available to the patient. A risk/benefit analysis was discussed with the patient reviewing the advantages and disadvantages of surgical intervention at this time. A full explanation was given of the nature and the purpose of the procedure and anesthesia, its benefits, possible alternative methods of diagnosis of treatment, the risks involved, the possibility of complications, the foreseeable consequences of the procedure and the possible results of the non-treatment. No guarantee or assurance was made as to the results that may be obtained. Specifically, the risks were identified to include, but are not limited, to the following: Infection, phlebitis, pulmonary embolism, , paralysis, dislocation, pain, stiffness, instability, limp, weakness, breakage, leg-length inequality, uncontrolled bleeding, nerve injury, blood vessel injury, pressure sores, anesthetic risks, delayed healing of wound and bone, and wear and loosening. Additional risks of robotic knee replacement were discussed (if used) including but not limited to pin site infection, draining, longer incision, longer OR time, and fracture near the pin sites. Further discussion was undertaken with the patient about the details of surgical preparation, treatment and postoperative rehabilitation including medical clearance, autotransfusion, the hospital course and the postoperative rehabilitation involved. As a part of routine preoperative counseling, if the patient is a smoker, the patient recognizes the increased risk of complications in patients who utilize tobacco products. The patient has also been counseled regarding the elevated risk of surgical complications in patients with an elevated BMI. The patient demonstrates understanding of the increased risk in such patients. The patient was encouraged to participate in physical activity and diet modification under the direction of their primary care physician. We will plan on proceeding with left total knee arthroplasty using the Marisa total knee replacement system. However, it is possible during the preoperative planning process or due to intraoperative findings that a different implant system may be utilized in order to optimize the patient's outcome. We had a discussion regarding implant and bearing options. We had a detailed discussion of the advantages and limitations of the specific implant designs, materials and bearing surfaces. All questions were answered to the patient's satisfaction, and the patient was asked to call the office with any further concerns. All in all, I feel that this patient is a good candidate for surgical reconstruction. We had a long talk regarding expectations following total knee replacement. We discussed that this is a tough recovery compared to total hip replacement. We discussed that many of her symptoms including the pain around the hip the thigh the hamstrings distal to the knee may not be resolved by total knee replacements. She is in understanding of this. Plan for left total knee replacement, robotic assisted, at [place] [facility]. [email or web address] Not available 01/10/2024 12:51:19 08/11/2024 08/11/2024 HPI: Patient comes in complaining of left hip pain. This patient is experiencing left hip pain at the lateral thigh, which is moderate in intensity, and has recently worsened. The pain limits some activities of daily living. Pain and restriction of function are moderate at this time. She is about 1.5 year from left total hip replacement. Her previous hip pain is largely resolved. It is over the last few days that she had lateral sided hip pain. Review of systems is negative for other rapidly progressive neurological disorder, chest pain, shortness of breath, fevers, chills, or any signs of active or persistent local or systemic infection. Physical Exam: Patient is well nourished, well-developed, in no acute distress, with appropriate mood and affect. The patient is oriented to time, place, and person. Respirations are even and unlabored. There is no inguinal adenopathy. Examination of the contralateral hip shows normal range of motion, strength, no tenderness, and intact skin. The affected limb is well-perfused, shows a grossly normal motor and sensory examination. Examination of the hip shows well-healed skin incisions. Hip motion is is not reduced. FADIR is negative and MICHAELA is negative. Stinchfield test is negative. Patient is TTP at the greater trochanter. Julien test is positive. Leg lengths are approximately equal. Both hips are stable and muscle strength is normal. Pedal pulses are palpable. Assessment/Plan: The patient has left IT band tendinitis/greater trochanter bursitis next to left total hip replacement. An extensive discussion was conducted on the natural history of the disease and the variety of non-surgical options available to the patient including non-steroidal anti-inflammatory medications, physical therapy, maintenance of ideal body weight, and reduction of activity. Given that she has only had symptoms for a few days we are going to start her with NSAIDs. Patient was prescribed meloxicam. Discussed the risks of NSAID use with the patient, including but not limited to stomach irritation, gastric ulcers, kidney issues, and bleeding. If considering long-term use, the patient should discuss with their primary care physician. She will follow-up as needed regarding her left hip IT band tendinitis. If symptoms continue she can follow-up with NOE Pacheco for possible injection. Not available 08/11/2024 16:30:59 Plan of Treatment Reminders Order Date Submit Date Provider Last Modified By Organization Details Last Modified Time Details Appointments None recorded. Lab ESR (erythrocyt e sedimentati on rate), blood - Joint pain status post arthroplast y, evaluate for joint infection 2023 024 Not available 4 11:10:17 C-reactive protein, quantitativ e, serum or plasma - Joint pain status post arthroplast y, evaluate for joint infection 2023 024 CAROLE Not available 09:21:14 Referral None recorded. Procedures intra-artic ular injection, knee, viscosupple ment (PROC) - Please check insurance for [employer] Author[employer]ati on, insurance preferred med. Knee Laterality: Left 2023 024 Not available 4 16:15:19 Surgeries total knee arthroplast y (SURG) 2023 024 [email or web address] 0 [place] [facility] At [facility], [address] [place] [address], [address], 4 12:54:59 Imaging XR, hip, unilateral, 2 or 3 view 2023 024 [email or web address] [facility], [address], [address], [place], [address], 4 06:58:59 XR, hip, unilateral, 2 or 3 view 2023 024 [email or web address] [facility], [address], [address], [place], [address], 4 13:08:33 Medication Orders meloxicam 15 mg tablet 2023 024 CAROLE [facility] #[id number], [address], [place], [place], [phone], 4 16:27:55 Euflexxa 10 mg/mL (mw 2.4-3.6 million) intra-artic ular syringe 2023 024 [email or web address] [facility] #[id number], [address] , [place], [place], [phone], 4 08:39:40 Patient TargetsNo targets recorded. Patient Instructions Encounter Date Encounter Id Patient Instructions Last Modified By Organization Details Last Modified Time 08/11/2024 [id number] AP pelvis, AP an d lateral radiographs of the left hip taken today demonstrate a left total hip replacement with components in appropriate position without any signs of hardware related complication. Not available 08/11/2024 16:31:44 Reason for Referral None Reported. Results Created Date Observation Date Name Description Value Unit Range Abnormal Flag Note LastModifiedBy Organization Detail LastModifiedTime Result Notes None recorded. 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 Procedures Surgical History Date Name Laterality Status Provider Name and Address Organization Details Recorded Time 10/31/19 24 Euflexxa Knee Inj w/US completed ISABELA STEELE PA-C [address], [place], [address], [place] [facility], P 10/31/2023 11:29:20 10/24/19 24 Euflexxa Knee Inj w/US (Patient Supplied Meds) completed ISABELA STEELE PA-C [address], [place], [address], [place] [facility], P 10/24/2023 08:39:48 10/17/19 24 Euflexxa Knee Inj w/US completed ISABELA STEELE PA-C [address] [facility],[address], [place], [address], [place] [facility], P 10/17/2023 12:15:51 09/06/20 23 MJG Knee Injection w/o US completed Garcia Valencia MD [address] [facility],[address], [place], [address], [place] [facility], P 09/06/2023 10:11:10 prosthetic arthroplasty of hip completed [facility], P 09/06/2023 09:19:42 partial colectomy with anastomosis completed [facility], P 09/06/2023 09:20:16 Imaging Results None recorded. Procedure Notes None recorded. Medical Equipment None Reported. Allergies Allergen ID Allergen Name Allergen Category Reaction Reaction Severity Criticality Documentation Date Start Date Code Code System Note Provider Name and Address Organization Details Recorded Time 14171 penicilla mine medicatio n Not available Not available Not available 09/06/2023 7975 [facility] 09:15:40 02620 Iodinated contrast media (substanc e) medicatio n Not available Not available Not available 09/06/2023 61811 2004 SNOMED Robynchacho Carlsonchiara cabrera, [facility], P 3 09:16:13 Medications Name Sig Start Date Stop Date Status Note LastModified by Organization Details LastModified Time losartan 50 mg tablet TAKE 1 TABLET BY MOUTH DAILY active Not Available Not Available No t Available Gaviscon Extra Strength 254 mg-237.5 mg/5 mL oral suspension TAKE 30 ML BY MOUTH EVERY 4 HOURS NEEDED FOR HEARTBURN . active Not Available Not Available No t Available cyclobenzap rine 10 mg tablet TAKE 1 TABLET BY MOUTH DAILY AT BEDTIME NEEDED active Not Available Not Available No t Available metformin 500 mg tablet TAKE 1 TABLET BY MOUTH EVERY DAY WITH A MEAL 09/26 completed Not Available Not Available Not Available nystatin 100,000 unit/mL oral suspension active Not Available Not Available N ot Available Lidocaine Viscous 2 % mucosal solution RINSE AND GARGLE 15 ML BY MOUTH TO AFFECTED MUCOSAL AREA EVERY 4 HOURS NEEDED FOR HEARTBURN active Not Available Not Available No t Available valacyclovi r 1 gram tablet TAKE 1 TABLET BY MOUTH EVERY 8 HOURS 09/26 completed Not Available Not Available Not Available meloxicam 15 mg tablet TAKE 1 TABLET BY MOUTH EVERY DAY NEEDED active Not Available Not Available No t Available ondansetron HCl 4 mg tablet TAKE 1 TABLET BY MOUTH EVERY 6 HOURS NEEDED 09/26 completed Not Available Not Available Not Available famotidine 40 mg tablet TAKE 1 TABLET BY MOUTH AT BEDTIME active Not Available Not Available No t Available rizatriptan 10 mg tablet TAKE 1 TABLET BY MOUTH DAILY NEEDED active Not Available Not Available No t Available sertraline 100 mg tablet TAKE 1 TABLET BY MOUTH DAILY active Not Available Not Available No t Available metronidazo le 250 mg tablet TAKE 1 TABLET BY MOUTH THREE TIMES DAILY active Not Available Not Available No t Available metronidazo le 500 mg tablet TAKE 1 TABLET BY MOUTH THREE TIMES DAILY FOR 10 DAYS 09/26 completed Not Available Not Available Not Available acetaminoph en 300 mg-codeine 30 mg tablet TAKE 2 TABLETS BY MOUTH FOUR TIMES DAILY FOR 7 DAYS NEEDED active Not Available Not Available No t Available ciprofloxac in 500 mg tablet TAKE 1 TABLET BY MOUTH TWICE DAILY active Not Available Not Available No t Available omeprazole 40 mg capsule,del ayed release TAKE 1 CAPSULE BY MOUTH TWICE DAILY active Not Available Not Available No t Available aspirin 81 mg tablet,barber yed release TAKE 1 TABLET BY MOUTH EVERY 12 HOURS FOR DVT PROPH 30 DAYS 09/26 completed Not Available Not Available Not Available Kenalog 40 mg/mL suspension for injection Take 1 mL by injection route. 09/26 completed Not Available Not Available Not Available levothyroxi ne 100 mcg tablet TAKE 1 TABLET BY MOUTH EVERY MORNING active Not Available Not Available No t Available methocarbam ol 750 mg tablet TAKE 1 TABLET BY MOUTH TWICE DAILY NEEDED 09/26 completed Not Available Not Available Not Available betamethaso ne valerate 0.1 % topical cream APPLY THIN LAYER TOPICALLY TO THE AFFECTED AREA TWICE DAILY 09/26 completed Not Available Not Available Not Available cephalexin 500 mg capsule TAKE 1 CAPSULE BY MOUTH TWICE DAILY FOR 10 DAYS 09/26 completed Not Available Not Available Not Available paroxetine 30 mg tablet TAKE 1 TABLET BY MOUTH EVERY DAY 09/26 completed Not Available Not Available Not Available paroxetine 20 mg tablet 40 mg every day by oral route. 2023 active Not Available Not Available Not Avai lable simvastatin 20 mg tablet TAKE 1 TABLET BY MOUTH EVERY DAY IN THE EVENING active Not Available Not Available No t Available hyoscyamine 0.125 mg sublingual tablet TAKE 1 TABLET BY MOUTH UNDER THE TONGUE AND ALLOW TO DISSOLVE THREE TIMES DAILY NEEDED active Not Available Not Available No t Available losartan 25 mg tablet TAKE 1 TABLET BY MOUTH EVERY DAY active Not Available Not Available No t Available ibuprofen 400 mg tablet TAKE 1 TO 2 TABLETS BY MOUTH EVERY 8 HOURS 09/26 completed Not Available Not Available Not Available hydrochloro thiazide 12.5 mg capsule TAKE 1 CAPSULE BY MOUTH DAILY IN THE MORNING active Not Available Not Available No t Available hydrochloro thiazide 25 mg tablet TAKE 1 TABLET BY MOUTH ONCE DAILY active Not Available Not Available No t Available mupirocin 2 % topical ointment APPLY TOPICALLY TO THE AFFECTED AREA OF NOSE TWICE DAILY STARTING 03/02/23 ENDING 03/07/2309/26 completed Not Available Not Available Not Available ergocalcife rol (vitamin D2) 1,250 mcg (50,000 unit) capsule TAKE 1 CAPSULE BY MOUTH EVERY WEEK FOR 12 WEEKS active Not Available Not Available No t Available budesonide DR - ER 3 mg capsule,del ayed,extend ed release TAKE 2 CAPSULE BY MOUTH EVERY DAY FOR 2 WEEKS THEN DECREASE TO 1 CAPSULE EVERY DAY FOR 2 WEEKS active Not Available Not Available No t Available levofloxaci n 500 mg tablet TAKE 1 TABLET BY MOUTH EVERY DAY FOR 7 DAYS 09/26 completed Not Available Not Available Not Available zolpidem 10 mg tablet TAKE 1/2 TO 1 TABLET BY MOUTH EVERY NIGHT AT BEDTIME NEEDED active Not Available Not Available No t Available methylpredn isolone 4 mg tablets in a dose pack FOLLOW PACKAGE DIRECTION S 09/26 completed Not Available Not Available Not Available paroxetine 40 mg tablet TAKE 1 TABLET BY MOUTH DAILY IN THE MORNING active Not Available Not Available No t Available ondansetron 4 mg disintegrat ing tablet DISSOLVE 1 TABLET ON THE TONGUE THREE TIMES DAILY NEEDED FOR 7 DAYS active Not Available Not Available No t Available losartan 100 mg tablet TAKE 1 TABLET BY MOUTH DAILY active Not Available Not Available No t Available sertraline 50 mg tablet TAKE 1 TABLET BY MOUTH DAILY active Not Available Not Available No t Available amoxicillin 875 mg-potassiu m clavulanate 125 mg tablet TAKE 1 TABLET BY MOUTH EVERY 12 HOURS FOR 10 DAYS 09/26 completed Not Available Not Available Not Available oxycodone 5 mg tablet TAKE 1 TABLET BY MOUTH EVERY 4 HOURS NEEDED FOR MODERATE PAIN active Not Available Not Available No t Available Marcaine (PF) 0.5 % (5 mg/mL) injection solution Take 4 mL by injection route. 09/26 completed Not Available Not Available Not Available topiramate 50 mg tablet TAKE 1 TABLET BY MOUTH EVERY DAY active Not Available Not Available No t Available nitrofurant oin monohydrate /macrocryst als 100 mg capsule TAKE 1 CAPSULE BY MOUTH EVERY 12 HOURS FOR 5 DAYS WITH FOOD/MEAL active Not Available Not Available No t Available pregabalin 50 mg capsule TAKE 1 CAPSULE BY MOUTH THREE TIMES DAILY EVERY NIGHT AT BEDTIME 09/26 completed Not Available Not Available Not Available Euflexxa 10 mg/mL (mw 2.4-3.6 million) intra-artic ular syringe Inject 10 mg by intra-art icular route for 21 days. 2023 active Not Available Not Available Not Avai lable desvenlafax ine succinate ER 50 mg tablet,exte nded release 24 hr TAKE 1 TABLET BY MOUTH DAILY active Not Available Not Available No t Available GaviLyte-G 236 gram-22.74 gram-6.74 gram-5.86 gram oral solution USE DIRECTED BY [facility] NS OFFICE FOR COLONOSCO PY active Not Available Not Available No t Available lidocaine (PF) 100 mg/5 mL (2 %) injection syringe Take 4 mL by injection route. 09/26 completed Not Available Not Available Not Available OneTouch Verio test strips USE DIRECTED ONCE DAILY active Not Available Not Available No t Available OneTouch Verio Flex Meter USE DIRECTED ONCE DAILY active Not Available Not Available No t Available OneTouch Delica Plus Lancet 33 gauge DIRECTED ONCE DAILY active Not Available Not Available No t Available Voquezna 20 mg tablet TAKE 1 TABLET BY MOUTH DAILY active Not Available Not Available No t Available Vitals Date Recorded Body height Provider Name an d Address Organization Details Last Updated DateTime 10/24/2023 172.72 cm Shaista Anguiano [place] - [facility], [facility] 10/24/2023 08:24:51 Date Recorded Body height Body mass index (BMI) Body weight Provider Name and Address Organization Details Last Updated DateTime 01/10/2024 172.72 cm 29.5 kg/m2 32414.92 g Robyn Holman [facility] 01/10/2024 08:55:57 Date Recorded Body height Body mass index (BMI) Body weight Provider Name and Address Organization Details Last Updated DateTime 08/11/2024 172.72 cm 29.5 kg/m2 [address]55.[address] [facility] 08/11/2024 16:14:01 Social History None recorded. Functional Status Question Answer Note LastModified by Organizat ion Details LastModified Time Do you use any illicit or recreational drugs? No Information not available 09/06/2023 Do you or have you ever used any other forms of tobacco or nicotine? Yes Information not available 09/06/2023 What is your level of alcohol consumption? Occasional Information not available 09/06/2023 Do you or have you ever used e-cigarettes or vape? Former user of electronic cigarettes Information not available 09/06/2023 Mental Status None recorded. Family History Relationship Description Onset Age of this Age Resolved Age Notes LastModified by Organization Details LastModified Time Brother Diabetes mellitus Not available 2022 09:18:15 Father Diabetes mellitus Not available 2022 09:18:15 Father Family history of malignant neoplasm Not available 2022 09:18:25 Father Heart disease Not available 2022 09:18:39 Medical History Condition Response Gout Y Diabetes Y Hypertension Y Osteoporosis Y Gynecological HistoryNo gynecological history recorded. Obstetrics History GPAL:G 0 P 0 0 0 0 Past Encounters Encounter ID Performer Location Encounter Start Date Encounter Closed Date Diagnosis/Indication Diagnosis SNOMED-CT Code Diagnosis ICD10 Code Diagnosis IMO Codes Diagnosis Note [id number] MD PADMINI Rico [address] [facility] [address] [place] [address] 09/06/2023 08:57:12 09/06/2023 10:12:49 Pain of left knee joint 1185019203 62646 M25.562 History of total hip arthroplasty 2001277956 06 Z96.649 Osteoarthr itis of left knee joint 4244227955 98671 M17.12 [id number] JESSI PACHECO [place] [address] [facility] [address] [place] [address] 09/26/2023 08:17:19 09/26/2023 08:53:23 Osteoarthritis of left knee joint 1270233939 63468 M17.12 [id number] JESSI PACHECO [place] [address] [place] [address] 10/17/2023 11:35:09 10/17/2023 12:15:45 Osteoarthritis of left knee joint 2954843838 40916 M17.12 [id number] JESSI PACHECO [place] [address] [place] [address] 10/24/2023 08:17:43 10/24/2023 09:03:09 Osteoarthritis of left knee joint 3580615859 82725 M17.12 [id number] JESSI PACHECO [place] [address] [place] [address] 10/31/2023 10:46:46 10/31/2023 11:31:30 Osteoarthritis of left knee joint 7279476360 59165 M17.12 Pain of le ft hip joint 8713086506 61563 M25.552 [id number] JESSI PACHECO [place] [address] [place] [address] 11/28/2023 10:14:46 11/28/2023 10:44:20 Osteoarthritis of left knee joint 1046144928 22766 M17.12 [id number] MD PADMINI Rico [address] [place] [address] 01/10/2024 08:41:49 01/10/2024 09:49:05 Osteoarthritis of left knee joint 4224770949 64536 M17.12 Arthritis of knee 094781 002 M13.869 [id number] Garcia Valencia MD [facility] [address] [facility] [address] [place] [address] 08/11/2024 16:05:58 08/11/2024 16:33:09 History of total replacement of left hip joint 4824233748 410059 Z96.642 11724712 Iliotibial band friction syndrome of left knee 2734945191 20554 M76.32 3590196 Health Concerns Section Related Observation LastModified by Organization Detai ls LastModified Time None Recorded Concern Status LastModified by Organization Details LastModified Time None Recorded Advance Directives Directive None Recorded Payers Insurance Date Sequence Insurance Name Policy Number Policy Conner Covered Member ID Conner Member ID Guarantor Name 08/11/2024 1 [facility] [id number] Isabela Griffin [id number] Sharon Griffin Notes Date Note Type Note Provider Name and Address Organization Details Recorded Time 4 text/html 53-year-old female presents for recheck of left knee pain. Unfortunately, she got no relief whatsoever from her series of viscosupplementation injections. She has failed to get meaningful or lasting relief from physical therapy, anti-inflammatory medicine, [id number] analgesia, cortisone injections, or viscosupplementation injection. She is experiencing significant pain and profound disability with a wide range of her activities of daily living. ISABELA STEELE PA-C [address] [place] [address], [address], [place] - [facility] [place] 11/28/2023 10:43:24 OBGyn Episode No OBEpisode recorded.
--- OUTSIDE RECORDS SUMMARY | 2025-08-05 18:12 | XMS_ITS | Clinical Summary ---
Author Organization [facility] [address] [facility] Address [address] [place] [address] Phone Care Team Providers Care Gas Main Fitter Helper Name Role Phone Suman Tijerina MD Primary Care Provider [phone] Allergies Active Allergy Reactions Criticality Noted Date [...] 08/12/2024 Left lower quadrant abdominal pain 06/02/2024 Medical History Medical History Date Comments Lymphocytic [...] Last Done Comments Breast Cancer Screening 1968 Colorectal Cancer Screening: Colonoscopy 1968 DTaP,Tdap,and Td Vaccines (1 - Tdap) 1987 Hepatitis B Vaccines (1 of 3 - 19+ 3-dose series) 1987 Cervical Cancer Screening: Pap Smear 1989 Pneumococcal Vaccine: 50+ Years (1 of 1 - PCV) 2018 Zoster Vaccines (1 of 2) 2018 Cholesterol Screening (Lipid Panel) 09/09/2022 HIV Screening 09/09/2022 Hepatitis C Screening 09/09/2022 Social Influencers of Health Screening 09/09/2022 Hypertension/CHF/CAD Annual BMP Blood Test 08/12/2024 Depression Screening 10/07/2024 COVID-19 Vaccine (2024- season) 2025 03/30/2022, 12/02/2021, 01/02/2021, Additional history [...] on patient's age to complete this topic Insurance [facility] [place] [id number] Care Teams Gas Main Fitter Helper Relationship Specialty Start Date End Date Suman Tijerina MD [address] [place] [id number] PCP - General 07/25/21
--- OUTSIDE RECORDS SUMMARY | 2025-08-05 18:13 | XMS_ITS | Data Portability ---
Author Organization [facility] Pain [facility], PAIN OFFICE Address [address] [place] [address] Care Team Providers Care Production Sorter Name Role Phone JIMENEZ BERNARD Primary Care Provider Assessment Encounter Date Assessment Date Assessment LastModified by Organization Details LastModified Time 06/17/2020 06/17/2020 Sharon Griffin is a 49 year old woman with low back pain radiating into the right lower extremity. On exam ,she has pain on flexion. MRI Lumbar spine shows at L4-L5 there is central extrusion slightly asymmetric to the right which narrows the subarticular zones and abuts the traversing right L5 nerve root. Trial of Lumbar epidural steroid injections under fluoroscopic guidance was recommended. The risks and benefits of the procedure were discussed in detail. She wishes to proceed. She will call for an appointment . She needs a special education bus driver on the day of the procedure. [email or web address] Not available 07/27/2020 16:45:08 03/12/2025 03/12/2025 Sharon Griffin is a 54 year old woman with complaints of multiple pains She states her worse pain in both axillary regions and across her chest. She also has neck pain radiating into both arms with numbness and tingling. She is a diabetic . MRI Cervical spine shows degenerative changes of the cervical spine most prominent at C5-6 and C6-7 levels. We discussed treatment options. I recommend a neurology consult. She will discuss with Dr. Bernard, her PCP. She may need a repeat EMG/NCV study to elucidate if her pain generator is cervical vs diabetic neuropathy. I recommend continuing with gabapentin. [email or web address] Not available 03/24/2025 11:16:09 Plan of Treatment Reminders Order Date Submit Date Provider Last Modified By Organization Details Last Modified Time Details Appointments None record ed. Lab None record ed. Referral None record ed. Procedures None record ed. Surgeries None record ed. Imaging None record ed. Medication Orders None record ed. Patient TargetsNo targets recorded. Patient Instructions Encounter Date Encounter Id Patient Instructions Last Modified By Organization Details Last Modified Time 06/17/2020 [id number] She was advised against bed rest lasting longer than four days and to continue activities as tolerated. [email or web address] Not available 07/27/2020 16:45:17 03/12/2025 [id number] She was advised against bed rest lasting longer than four days and to continue activities as tolerated. [email or web address] Not available 03/24/2025 11:16:13 Reason for Referral None Reported. Results Created Date Observation Date Name Description Value Unit Range Abnormal Flag Note LastModifiedBy Organization Detail LastModifiedTime 03/09/2001/06/2025 MRI, cervi dalia spine , w/o contr ast No observ ation record ed. [facility] [place] [address] [place], [address], 04/05/2025 15:57:28 Result Notes None recorded. Problems Name Problem SNOMED Code Status Onset Date Resolution Date Notes Provider Name and Address Organization Details Recorded Time Lumbosacral radiculopathy 8803995 Active Elva winter MD [address] [facility] , [facility] [address], [place], [address], [place] - [facility] 0 08:39:33 Degeneration of lumbar intervertebral disc 62422118 Active Elva winter MD [address] [facility] , [address], [place], [address], [place] - [facility] 0 08:39:50 Problem Notes None recorded. Procedures Surgical History Date Name Laterality Status Provider Name and Address Organization Details Recorded Time partial resection of colon completed Elva Muhammad MD [address] [facility] , [facility] [address], [place], [address], [facility] - Pain Management 06/17/2020 11:24:20 dilation and curettage of uterus completed Elva Muhammad MD [address] [facility] , [address], [place], [address], [place] - [facility] 06/17/2020 11:24:54 Colostomy completed Elva Muhammad MD [address] , [address], [place], [address], [place] - [facility] 06/17/2020 11:25:10 total replacement of hip completed Elva Muhammad MD [address] , [address], [place], [address], [place] [facility] 03/12/2025 09:14:34 Appendectomy completed Elva Muhammad MD [address] , [address], [place], [address], [place] [facility] 03/12/2025 09:15:43 Imaging Results None recorded. Procedure Notes None recorded. Medical Equipment None Reported. Allergies Allergen ID Allergen Name Allergen Category Reaction Reaction Severity Criticality Documentation Date Start Date Code Code System Note Provider Name and Address Organization Details Recorded Time 15053 Product containin g penicilli n (product) medicatio n Not available Not available Not available 06/17/2020 05236 8001 SNOMED Elva winter MD [address] , [address], [facility] [place], [address], [place] - [facility] 0 11:17:14 41644 Iodinated contrast media (substanc e) medicatio n anaphylax is moderate high 06/17/2020 95886 2004 SNOMED Elva winter MD [address] , [address], [place], [address], [place] [facility] 5 09:09:09 06661 Dilaudid medicatio n Not available Not available Not available 06/17/2020 54952 3 RxNorm Elva winter MD [address] , [address], [place], [address], [place] [facility] 0 11:17:49 04740 omeprazol e medicatio n Not available Not available Not available 03/12/2025 7646 RxNorm Elva winter MD [address] , [address], [place], [address], [place] [facility] 5 09:12:12 Medications Name Sig Start Date Stop Date Status Note LastModified by Organization Details LastModified Time cyclobenzap rine 10 mg tablet TAKE 1 TABLET BY MOUTH DAILY AT BEDTIME NEEDED active Not Available Not Available No t Available ibuprofen 800 mg tablet active Not Available Not Available Not Available fluconazole 150 mg tablet TAKE 1 TABLET BY MOUTH 1 TIME FOR 1 DAY 03/12 completed Not Available Not Available Not Available meloxicam 15 mg tablet TAKE 1 TABLET BY MOUTH EVERY DAY NEEDED 03/12 completed Not Available Not Available Not Available ondansetron HCl 4 mg tablet 03/12 completed Not Available Not Available Not Available prednisone 20 mg tablet TAKE 2 TABLETS BY MOUTH DAILY WITH FOOD OR MILK FOR 5 DAYS 03/12 completed Not Available Not Available Not Available rizatriptan 10 mg tablet TAKE 1 TABLET BY MOUTH DAILY NEEDED active Not Available Not Available No t Available sertraline 100 mg tablet TAKE 1 TABLET BY MOUTH DAILY active Not Available Not Available No t Available metronidazo le 250 mg tablet TAKE 1 TABLET BY MOUTH THREE TIMES DAILY 03/12 completed Not Available Not Available Not Available atenolol 25 mg tablet TK 1 T PO QD 03/12 completed Not Available Not Available Not Available acetaminoph en 300 mg-codeine 30 mg tablet TAKE 2 TABLETS BY MOUTH 4 TIMES A DAY FOR 14 DAYS NEEDED active Not Available Not Available No t Available ciprofloxac in 500 mg tablet TAKE 1 TABLET BY MOUTH TWICE DAILY 03/12 completed Not Available Not Available Not Available omeprazole 40 mg capsule,del ayed release TAKE 1 CAPSULE BY MOUTH TWICE DAILY 03/12 completed Not Available Not Available Not Available levothyroxi ne 100 mcg tablet TAKE 1 TABLET BY MOUTH EVERY MORNING active Not Available Not Available No t Available lorazepam 0.5 mg tablet active Not Available Not Available Not Available baclofen 10 mg tablet 03/12 completed Not Available Not Available Not Available benzonatate 100 mg capsule TAKE 1 CAPSULE BY MOUTH THREE TIMES DAILY FOR 10 DAYS NEEDED 03/12 completed Not Available Not Available Not Available simvastatin 20 mg tablet TAKE 1 TABLET BY MOUTH EVERY DAY IN THE EVENING active Not Available Not Available No t Available levothyroxi ne 125 mcg tablet 06/17 completed Not Available Not Available Not Available dexamethaso ne 4 mg tablet 06/17 completed Not Available Not Available Not Available lisinopril 10 mg tablet 06/17 completed Not Available Not Available Not Available hyoscyamine 0.125 mg sublingual tablet TAKE 1 TABLET BY MOUTH UNDER THE TONGUE AND ALLOW TO DISSOLVE THREE TIMES DAILY NEEDED 03/12 completed Not Available Not Available Not Available hydrochloro thiazide 12.5 mg capsule TAKE 1 CAPSULE BY MOUTH DAILY IN THE MORNING 03/12 completed Not Available Not Available Not Available gabapentin 300 mg capsule 03/12 completed Not Available Not Available Not Available hydrochloro thiazide 25 mg tablet TAKE 1 TABLET BY MOUTH DAILY active Not Available Not Available No t Available gabapentin 100 mg capsule TAKE ONE CAPSULE BY MOUTH EVERY NIGHT AT BEDTIME X 1 WEEK THEN 1 CAPSULE TWICE DAILY FOR 1 WEEK THEN 1 CAPSULE THREE TIMES DAILY active Not Available Not Available No t Available Promethegan 25 mg rectal suppository 06/17 completed Not Available Not Available Not Available budesonide DR - ER 3 mg capsule,del ayed,extend ed release TAKE 2 CAPSULE BY MOUTH EVERY DAY FOR 2 WEEKS THEN DECREASE TO 1 CAPSULE EVERY DAY FOR 2 WEEKS active Not Available Not Available No t Available zolpidem 10 mg tablet TAKE 1/2 TO 1 TABLET BY MOUTH EVERY NIGHT AT BEDTIME NEEDED active Not Available Not Available No t Available methylpredn isolone 4 mg tablets in a dose pack 06/17 completed Not Available Not Available Not Available paroxetine 40 mg tablet TAKE 1 TABLET BY MOUTH DAILY IN THE MORNING 03/12 completed Not Available Not Available Not Available ondansetron 4 mg disintegrat ing tablet DISSOLVE 1 TABLET ON THE TONGUE THREE TIMES DAILY NEEDED FOR 7 DAYS 03/12 completed Not Available Not Available Not Available losartan 100 mg tablet TAKE 1 TABLET BY MOUTH DAILY active Not Available Not Available No t Available sertraline 50 mg tablet TAKE 1 TABLET BY MOUTH DAILY 03/12 completed Not Available Not Available Not Available metoclopram rohan 10 mg tablet 06/17 completed Not Available Not Available Not Available topiramate 50 mg tablet TAKE 1 TABLET BY MOUTH EVERY DAY active Not Available Not Available No t Available duloxetine 60 mg capsule,del ayed release TK 1 C PO QD 03/12 completed Not Available Not Available Not Available desvenlafax ine succinate ER 50 mg tablet,exte nded release 24 hr TAKE 1 TABLET BY MOUTH DAILY 03/12 completed Not Available Not Available Not Available GaviLyte-G 236 gram-22.74 gram-6.74 gram-5.86 gram oral solution USE DIRECTED BY PHYSISICA OFFICE FOR COLONOSCO PY 03/12 completed Not Available Not Available Not Available Jardiance 25 mg tablet TAKE 1 TABLET BY MOUTH DAILY active Not Available Not Available No t Available OneTouch Delica Plus Lancet 30 gauge active Not Available Not Available Not Available Voquezna 20 mg tablet TAKE 1 TABLET BY MOUTH DAILY active Not Available Not Available No t Available Vitals Date Recorded Body height Heart rate Oxygen saturation Oxygen saturation in Arterial blood by Pulse oximetry Body mass index (BMI) Body weight Pain severity - 0-10 verbal numeric rating [Score] - Reported Systolic And Diastolic Provider Name and Address Organization Details Last Updated DateTime 5 172.72 cm 64 /min 99 % 99 % 28.6 kg/m2 36424.3 7 g 5 130/77 mm[Hg] Elva winter MD [address] , [address], [place], [address], [place] - Pain Management 5 09:06:51 Date Recorded Body height Body mass index (BMI) Body weight Heart rate Oxygen saturation Oxygen saturation in Arterial blood by Pulse oximetry Pain severity - 0-10 verbal numeric rating [Score] - Reported Systolic And Diastolic Provider Name and Address Organization Details Last Updated DateTime 0 172.72 cm 26.6 kg/m2 21083.6 6 g 60 /min 98 % 98 % 3 135/83 mm[Hg] Elva winter MD [address] , [address], [place], [address], [place] - [facility] 0 11:15:38 Social History Question Answer Notes LastModified by Organizat ion Details LastModified Time Tobacco Smoking Status Former Smoker quit in teenage years Not Available [employer] 07/22/2020 03:16:11 Which Illicit Or Recreational Drugs Have You Used? None [id number] Information not available 07/22/2020 Education 4 Year College Information not available 06/17/2020 Marital Status Informati on not available 06/17/2020 Sex: Unknown Functional Status Question Answer Note LastModified by Organizat ion Details LastModified Time What is your level of alcohol consumption? 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 Family History Relationship Description Onset Age of this Age Resolved Age Notes LastModified by Organization Details LastModified Time Father Diabetes mellitus [email or web address] Not available 06/07 11:21:40 Brother Diabetes mellitus [email or web address] Not available 06/07 11:21:40 Mother Hypertensive disorder tmanikantan Not available 06/07 11:21:58 Medical History Condition Response Diabetes Y Hypertension Y Hypothyroidism Y GERD/Reflux Y Gynecological HistoryNo gynecological history recorded. Obstetrics History GPAL:G 0 P 0 0 0 0 Past Encounters Encounter ID Performer Location Encounter Start Date Encounter Closed Date Diagnosis/Indication Diagnosis SNOMED-CT Code Diagnosis ICD10 Code Diagnosis IMO Codes Diagnosis Note [id number] Elva Muhammad MD PAIN OFFICE [address] [place] [address] 06/17/2020 10:47:44 07/27/2020 16:45:46 Degeneration of lumbar intervertebral disc 73517230 M51.36 Lumbosacra l radiculopathy 3211286 M54.17 [id number] Elva Muhammad MD PAIN OFFICE [address] [place] [address] 03/12/2025 08:45:42 03/24/2025 11:16:43 Cervical radiculopathy 85791092 M54.12 [id number] Degenerati on of cervical intervertebral disc 85354706 M50.30 21511655 Health Concerns Section Related Observation LastModified by Organization Detai ls LastModified Time None Recorded Concern Status LastModified by Organization Details LastModified Time None Recorded Advance Directives Directive None Recorded Payers Insurance Date Sequence Insurance Name Policy Number Policy Conner Covered Member ID Conner Member ID Guarantor Name 03/12/2025 1 [facility] (INDEMNITY) [id number] Sharon Griffin [id number] Sharon Griffin 03/24/2025 1 [facility] [id number] Sharon Griffin [id number] Sharon Griffin Notes Date Note Type Note Provider Name and Address Organization Details Recorded Time 06/17/2020 text/html Sharon Griffin is a 49 year old woman with complaints of low back pain radiating into right lower extremity and occasionally into left lower extremity. The pain started in end of 04/08/2020 . She states she coughed and started to have severe pain radiating into right lower extremity. She describes the pain as a shooting pain , sharp from her right buttock region to the right leg with numbness, tingling and weakness in her right lower extremity. Current pain level is 2-3/10. Pain is aggravated by standing and walking . Pain is relieved a little with application of heat. She is unable to sleep due to positioning and awakens multiple times at night due to pain. She has no history of bladder or bowel incontinence.MRI Lumbar spine shows at L4-L5 there is central extrusion slightly asymmetric to the right which narrows the subarticular zones and abuts the traversing right L5 nerve root.She has trialed physical therapy with some pain benefit. She had percocet and soma . She does not take opioids now. Elva Muhammad MD [address] [facility] , [address], [place], [address], [facility] Pain Management 07/28/2020 10:00:29 03/12/2025 text/html Sharon Griffin is a 54 year old Right handed woman who was last seen in 06/2020 with low back pain. She returns today with a different pain issue. She reports pain in her axilla and chest pain. She also has neck pain with burning and tingling in her arms. Current pain level is high.She is S/P anterior hip replacement of her left hip in [place], [place]. She had severe osteoarthritis of her left hip with subchondral insufficiency fracture with marrow edema in the left acetabular roof. She feels since the hip replacement , she has been having generalised pain throughout her body. She is concerned that she may be rejecting the new hip. She states she has also been diagnosed with lymphocytic colitis , Grave's disease . She also has hypertension and diabetes. Last A1c was 7.1. She is also concerned some of her pain may be diabetic neuropathy. She is on gabapentin. She has no history of bladder or bowel incontinence. 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 The results are not available today. She states they were normal. She was offered a cervical epidural injection. Elva Muhammad MD [address] [facility] , [address], [place], [address], [place] - [facility] 03/24/2025 11:21:01 OBGyn Episode No OBEpisode recorded.
--- OUTSIDE RECORDS SUMMARY | 2025-08-05 18:13 | XMS_ITS | Clinical Summary ---
Author Organization [facility] Address [address] [place] [address] Care Team Providers Care Analog Ic Design Engineer Name Role Phone Unavailable Primary Care Provider [...]
== END 2025-08-05 16:20 | disposition home or self-care (01) ==
LOC: HO.HSM 15:49
PROVIDERS: PCP Internal Medicine; Visit Provider Psychiatry & Neurology Neurology
DX: M79.7 Fibromyalgia (principal)
CPT/HCPCS: 99214